=== PATIENT | female | born 1985 | race Caucasian/White ===

== ENCOUNTER 2016-07-21 02:31 | Emergency (ER) | payer MEDICAID, MEDICARE ==
[~2016-07-21] VITALS: Ht 167.6 cm; Wt 53.0 kg
[~2016-07-21 02:31] MED LIST: LORA10TA PO; POLY.9T TOP
[2016-07-21 02:34] VITALS: BP 119/69; PULSE 84; RESP 16; TEMP 97.5; O2SAT 100
[2016-07-21 03:04] LABS: MEAN CORPUSCULAR HGB CONC 36.5 % (32.0-36.0)
--- NOTE | 2016-07-21 03:14 | PD ---
HPI Chief Complaint: Respiratory Symptoms Time Seen by Provider: 02:49 Travel History International Travel<30 days: No Contact w/Intl Traveler<30days: No Traveled to known affect area: No History of Present Illness HPI 31-year-old female approximately 25 weeks here for evaluation of shortness of breath. The patient reports that she woke up in the middle of the night tonight feeling short of breath. This is the third or fourth time that this has happened during her . She reports that she feels as though she cannot catch her breath. No chest pain. No fevers, chills, cough, recent illness. No history of DVT or PE. Positive movements. No vaginal bleeding or discharge. No abdominal pain. No leg pain or swelling. PFSH Past Medical History Diminished Hearing: No Musculoskeletal: Yes (PINCHED NERVES IN BACK) Integumentary: Yes (hx hives) Immunizations Current: Yes ?: LMP: 716 : 4 Para: 1 Miscarriage: 2 Ectopic : No Ovarian Cysts: No Dilation and Curettage (D&C): Yes Tubal Ligation: No Past Surgical History Hysterectomy: No Other Surgery: Yes (LEFT EYE ) Social History Alcohol Use: No Tobacco Use: No Substance Use: No Allergies-Medications (Allergen,Severity, Reaction): Coded Allergies: Macrolides (Verified Allergy, Severe, 07/21/16) Hives Tetracycline (Verified Allergy, Severe, Rash, 07/21/16) POSSIBLE Reported Meds & Prescriptions Reported Meds & Active Scripts Active Loratadine 10 Mg Tab 10 Mg PO DAILY Review of Systems Except as stated in HPI: all other systems reviewed are Neg Physical Exam Narrative GENERAL: Well-developed, well-nourished, comfortable, no acute distress. SKIN: Warm and dry. No rash. No pallor. HEAD: Atraumatic. Normocephalic. EYES: Pupils equal and round. No scleral icterus. No injection or drainage. ENT: Mucous membranes pink and moist. NECK: Trachea midline. No JVD. CARDIOVASCULAR: Regular rate and rhythm. RESPIRATORY: No accessory muscle use. Clear to auscultation. Breath sounds equal bilaterally. GASTROINTESTINAL: Abdomen soft, nondistended. Gravid uterus palpable above the umbilicus. No abdominal tenderness. MUSCULOSKELETAL: No obvious deformities. No clubbing. No cyanosis. No edema. Bilateral calves are supple, nontender. NEUROLOGICAL: Awake and alert. No obvious cranial nerve deficits. Motor grossly within normal limits. Normal speech. PSYCHIATRIC: Appropriate mood and affect; insight and judgment normal. Data Data Last Documented VS Vital Signs Date Time Temp Pulse Resp B/P Pulse Ox O2 Delivery O2 Flow Rate FiO2 07/21/16 03:42 16 97 Room Air 07/21/16 02:34 97.5 84 119/69 Orders Complete Blood Count With Diff (07/21/16 03:03) Comprehensive Metabolic Panel (07/21/16 03:03) Iv Access Insert/Monitor (07/21/16 03:03) Ecg Monitoring (07/21/16 03:03) Oximetry (07/21/16 03:03) Sodium Chloride 0.9% Flush (Ns Flush) (07/21/16 03:15) Electrocardiogram (07/21/16 ) Influenzae A/B Antigen (07/21/16 03:03) Us Leg Venous Doppler Bilat (07/21/16 ) Chest, Single Ap (07/21/16 ) Labs Laboratory Tests Test 07/21/16 03:30 White Blood Count 7.7 TH/MM3 Red Blood Count 3.90 MIL/MM3 Hemoglobin 12.8 GM/DL Hematocrit 35.2 % Mean Corpuscular Volume 90.2 FL Mean Corpuscular Hemoglobin 32.9 PG Mean Corpuscular Hemoglobin 36.5 % Concent Red Cell Distribution Width 12.6 % Platelet Count 272 TH/MM3 Mean Platelet Volume 7.8 FL Neutrophils (%) (Auto) 66.7 % Lymphocytes (%) (Auto) 22.0 % Monocytes (%) (Auto) 8.6 % Eosinophils (%) (Auto) 2.2 % Basophils (%) (Auto) 0.5 % Neutrophils # (Auto) 5.1 TH/MM3 Lymphocytes # (Auto) 1.7 TH/MM3 Monocytes # (Auto) 0.7 TH/MM3 Eosinophils # (Auto) 0.2 TH/MM3 Basophils # (Auto) 0.0 TH/MM3 CBC Comment AUTO DIFF Differential Comment AUTO DIFF CONFIRMED Platelet Estimate NORMAL Platelet Morphology Comment NORMAL Red Cell Morphology Comment NORMAL Sodium Level 139 MEQ/L Potassium Level 3.7 MEQ/L Chloride Level 107 MEQ/L Carbon Dioxide Level 23.9 MEQ/L Anion Gap 8 MEQ/L Blood Urea Nitrogen 4 MG/DL Creatinine 0.36 MG/DL Estimat Glomerular Filtration 213 ML/MIN Rate Random Glucose 80 MG/DL Calcium Level 8.8 MG/DL Total Bilirubin 0.3 MG/DL Aspartate Amino Transf 12 U/L (AST/SGOT) Alanine Aminotransferase 19 U/L (ALT/SGPT) Alkaline Phosphatase 67 U/L Total Protein 6.5 GM/DL Albumin 3.0 GM/DL MDM Medical Decision Making Medical Screen Exam Complete: Yes Emergency Medical Condition: Yes Medical Record Reviewed: Yes Differential Diagnosis PE, pneumonia, pneumothorax, influenza, ACS unlikely, anxiety, anemia Narrative Course Initial vital signs show heart rate 84, blood pressure 119/69, pulse ox 100% on room air, oral temp of 97.5F. CBC is unremarkable. CMP is unremarkable. Influenza is negative. The patient's lung sounds are clear. She has no cough. She is afebrile. I doubt she has pneumonia. She is still having some intermittent shortness of breath. Her EKG does have an RSR prime pattern in V1 and V2 with no interventricular conduction delay. I had a long discussion with the patient and the patient's mom regarding the possibility of a PE causing her symptoms. At this time I will further investigate for this by starting with a bilateral lower extremity ultrasound. If this is negative for DVT, then the patient is aware that she may need a VQ scan for further evaluation to rule out PE. Bilateral lower extremity duplex is negative for DVT. The patient was made aware of this finding. The next step elected to do is to perform a chest x-ray to see if there is another reason for her shortness of breath. If this is negative, then the next step will be VQ scan to help rule out PE. At approximately 7:00 AM at the end of my shift the patient was signed out to Dr. Peter who will follow up with chest x-ray, discuss results with the patient, and discuss performing a VQ scan. Procedures Procedure Narrative Bedside transabdominal ultrasound: Using the curvilinear probe, a large intrauterine is seen with a heart rate of 150 bpm. Axel Mora MD Jul 21, 2016 03:14
[2016-07-21] MEDS ORDERED: SODIUM CHLORIDE 0.9% FLUSH 5 ML FLUSH IVF PRN (03:15)
[2016-07-21 03:43] LABS: AUTOMATED NEUTROPHIL # 5.1 TH/MM3 (1.8-7.7); BASOPHIL % 0.5 % (0.0-2.0); EOSINOPHIL # 0.2 TH/MM3 (0-0.4); EOSINOPHIL % 2.2 % (0.0-4.0); HEMATOCRIT 35.2 % (35.0-46.0); LYMPHOCYTE # 1.7 TH/MM3 (1.0-4.8); MEAN CELL VOLUME 90.2 FL (80.0-100.0); MEAN CORPUSCULAR HEMOGLOBIN 32.9 PG (27.0-34.0); MONO % 8.6 % (0.0-8.0); NEUT % 66.7 % (16.0-70.0); PLATELET COUNT 272 TH/MM3 (150-450); RED CELL DISTRIBUTION WIDTH 12.6 % (11.6-17.2); WHITE BLOOD COUNT 7.7 TH/MM3 (4.0-11.0)
[2016-07-21 03:46] LABS: HEMO FLAGS AUTO DIFF
[2016-07-21 04:08] LABS: ANION GAP 8 MEQ/L (5-15); AST (GOT) 12 U/L (15-37); BICARBONATE 23.9 MEQ/L (21.0-32.0); BLOOD UREA NITROGEN 4 MG/DL (7-18); CHLORIDE 107 MEQ/L (98-107); GLOMERULAR FILTRATION RATE 213 ML/MIN (>89); POTASSIUM 3.7 MEQ/L (3.5-5.1); SODIUM (NA) 139 MEQ/L (136-145)
[2016-07-21 04:16] LABS: ALKALINE PHOSPHATASE 67 U/L (45-117); ALT (GPT) 19 U/L (10-53); TOTAL BILIRUBIN ADULT 0.3 MG/DL (0.2-1.0)
[2016-07-21 04:28] LABS: PLATELET ESTIMATE SMEAR NORMAL (NORMAL); PLATELET MORPHOLOGY NORMAL (NORMAL); SCAN/DIFF AUTO DIFF CONFIRMED
--- NOTE | 2016-07-21 06:39 | RADRPT ---
EXAM DATE/TIME: 07/21/2016 06:03 [facility] COMPARISON: No previous studies available for comparison. INDICATIONS : Shortness of breath. MEDICAL HISTORY : . Back pain. SURGICAL HISTORY : Dilation and curettage. Left eye surgery. ENCOUNTER: Initial ACUITY: 1 day PAIN SCORE: 0/10 LOCATION: Bilateral legs. TECHNIQUE: Venous ultrasound of the left and right leg was performed from the inguinal ligament to the proximal calf. Real-time, color Doppler and spectral tracing, compression and augmentation techniques were us ed. FINDINGS: RIGHT LEG: There is normal compressibility of the deep venous system from the inguinal region to the proximal ca lf. No echogenic clot is seen in the lumen of the common femoral, femoral, popliteal, and posterior tibial veins. There is a normal response of the venous system to proximal and distal augmentation an d respiration. LEFT LEG: There is normal compressibility of the deep venous system from the inguinal region to the proximal ca lf. No echogenic clot is seen in the lumen of the common femoral, femoral, popliteal, and posterior tibial veins. There is a normal response of the venous system to proximal and distal augmentation an d respiration. CONCLUSION: The study is negative for deep venous thrombosis bilateral lower extremity. Darnell Villela MD on July 21, 2016 at 6:37 Board Certified Radiologist. This report was verified electronically.
--- NOTE | 2016-07-21 07:02 | RADRPT ---
EXAM DATE/TIME: 07/21/2016 06:56 [facility] COMPARISON: CHEST SINGLE AP, July 24, 2013, 18:21. INDICATIONS : Pt having shortness of breath and dizziness since being . Today having hard time catching checo ath. MEDICAL HISTORY : . SURGICAL HISTORY : None. ENCOUNTER: Initial ACUITY: 1 day PAIN SCORE: 7/10 LOCATION: Bilateral chest FINDINGS: A single view of the chest demonstrates the lungs to be symmetrically aerated without evidence of mas s, infiltrate or effusion. No evidence of pneumothorax. The cardiomediastinal contours are unremark able. Osseous structures are intact. CONCLUSION: The lungs are clear. Darnell Villela MD on July 21, 2016 at 7:01 Board Certified Radiologist. This report was verified electronically.
[2016-07-21 07:31] VITALS: BP 104/67; PULSE 82; RESP 12; O2SAT 99
[2016-07-21 10:26] VITALS: BP 101/66; PULSE 73; RESP 16; O2SAT 98
--- NOTE | 2016-07-21 10:29 | RADRPT ---
EXAM DATE/TIME: 07/21/2016 09:47 [facility] COMPARISON: CHEST SINGLE AP, July 21, 2016, 6:56. INDICATIONS : Shortness of breath. Embolus. DOSE: 1.1 mCi Tc99m Labeled MAA IV MEDICAL HISTORY : . SURGICAL HISTORY : Left eye surgery. ENCOUNTER: Initial ACUITY: 2 days PAIN SCALE: 0/10 LOCATION: upper chest TECHNIQUE: The patient was injected with MAA, and eight-view perfusion scan was performed. FINDINGS: PERFUSION: There is a homogenous pattern of radiotracer uptake throughout both lungs. Chest x-ray demonstrates clear lungs. CONCLUSION: Normal perfusion lung scan. Low probability for PE. Esvin Bobo MD on July 21, 2016 at 10:26 Board Certified Radiologist. This report was verified electronically.
--- NOTE | 2016-07-21 10:52 | PD ---
Physical Exam Narrative GENERAL: Well-nourished, well-developed patient. SKIN: Warm and dry. HEAD: Normocephalic and atraumatic. EYES: No injection or drainage. ENT: No nasal drainage noted. NECK: Supple, trachea midline. CARDIOVASCULAR: Regular rate and rhythm RESPIRATORY: no increased effort. No accessory muscle use. NEUROLOGICAL: Awake and alert. Motor and sensory grossly within normal limits. Normal speech. Data Data Last Documented VS Vital Signs Date Time Temp Pulse Resp B/P Pulse Ox O2 Delivery O2 Flow Rate FiO2 07/21/16 10:26 73 16 101/66 98 Room Air 07/21/16 02:34 97.5 Orders Complete Blood Count With Diff (07/21/16 03:03) Comprehensive Metabolic Panel (07/21/16 03:03) Iv Access Insert/Monitor (07/21/16 03:03) Ecg Monitoring (07/21/16 03:03) Oximetry (07/21/16 03:03) Sodium Chloride 0.9% Flush (Ns Flush) (07/21/16 03:15) Electrocardiogram (07/21/16 ) Influenzae A/B Antigen (07/21/16 03:03) Us Leg Venous Doppler Bilat (07/21/16 ) Chest, Single Ap (07/21/16 ) Lung Scan - Perfusion (07/21/16 ) Labs Laboratory Tests Test 07/21/16 03:30 White Blood Count 7.7 TH/MM3 Red Blood Count 3.90 MIL/MM3 Hemoglobin 12.8 GM/DL Hematocrit 35.2 % Mean Corpuscular Volume 90.2 FL Mean Corpuscular Hemoglobin 32.9 PG Mean Corpuscular Hemoglobin 36.5 % Concent Red Cell Distribution Width 12.6 % Platelet Count 272 TH/MM3 Mean Platelet Volume 7.8 FL Neutrophils (%) (Auto) 66.7 % Lymphocytes (%) (Auto) 22.0 % Monocytes (%) (Auto) 8.6 % Eosinophils (%) (Auto) 2.2 % Basophils (%) (Auto) 0.5 % Neutrophils # (Auto) 5.1 TH/MM3 Lymphocytes # (Auto) 1.7 TH/MM3 Monocytes # (Auto) 0.7 TH/MM3 Eosinophils # (Auto) 0.2 TH/MM3 Basophils # (Auto) 0.0 TH/MM3 CBC Comment AUTO DIFF Differential Comment AUTO DIFF CONFIRMED Platelet Estimate NORMAL Platelet Morphology Comment NORMAL Red Cell Morphology Comment NORMAL Sodium Level 139 MEQ/L Potassium Level 3.7 MEQ/L Chloride Level 107 MEQ/L Carbon Dioxide Level 23.9 MEQ/L Anion Gap 8 MEQ/L Blood Urea Nitrogen 4 MG/DL Creatinine 0.36 MG/DL Estimat Glomerular Filtration 213 ML/MIN Rate Random Glucose 80 MG/DL Calcium Level 8.8 MG/DL Total Bilirubin 0.3 MG/DL Aspartate Amino Transf 12 U/L (AST/SGOT) Alanine Aminotransferase 19 U/L (ALT/SGPT) Alkaline Phosphatase 67 U/L Total Protein 6.5 GM/DL Albumin 3.0 GM/DL MDM Supervised Visit with LUANNE: No Interpretation(s) CBC & BMP Diagram 07/21/16 03:30 Last 24 hours Impressions Lung Scan Nuclear Medicine 07/21/16 0000 Signed Impressions: Service Date/Time: Thursday, July 21, 2016 09:47 - CONCLUSION: Normal perfusion lung scan. Low probability for PE. Esvin Bobo MD Lower Extremity Ultrasound 07/21/16 0000 Signed Impressions: Service Date/Time: Thursday, July 21, 2016 06:03 - CONCLUSION: The study is negative for deep venous thrombosis bilateral lower extremity. Darnell Villela MD Chest X-Ray 07/21/16 0000 Signed Impressions: Service Date/Time: Thursday, July 21, 2016 06:56 - CONCLUSION: The lungs are clear. Darnell Villela MD Narrative Course dr worley gave sign out to follow cxr and if negative to order vq vq negative, Patient denies any new complaints, all questions answered. Patient knows that follow up is incumbent on them and to return to the emergency room immediately if new or worsening symptoms develop. Patient given strict return precautions, vitals reviewed and are normal, agrees to further workup as an outpatient. Physician Communication Physician Communication ob hospitalist states can go home after review of workup Diagnosis Primary Impression: Shortness of breath due to Patient Instructions: General Instructions Additional Instruction: return as needed, follow with your ob tommorrow Med/Other Pt SpecificInfo: No Change to Meds Scripts No Active Prescriptions or Reported Meds Disposition: 01 DISCHARGE HOME Condition: Stable Kate Peter MD Jul 21, 2016 10:52
[2016-07-21] MEDS ORDERED: BENA25TA3 PO (23:00)
--- NOTE | 2016-07-21 23:27 | EKG ---
Date Performed: 07/21/2016 Time Performed: 04:11:41 PTAGE: 31 years EKG: Sinus rhythm POSSIBLE RIGHT VENTRICULAR CONDUCTION DELAY NONSPECIFIC T-WAVE ABNORMALITY BORDERLINE ECG Compared t o the PREVIOUS TRACING from 07/24/13, no significant change DOCTOR: Emil French Interpretating Date/Time 07/21/2016 23:26:27
[2016-07-22] MEDS ORDERED: VENTAER INH (16:22)
[2016-07-22] MEDS ORDERED: ALBU.5I NEB (16:22)
[2016-07-22] MEDS ORDERED: NEBULIZER1 MI1 (16:22)
[2016-08-06] MEDS ORDERED: OSEL75 PO (16:54)
[2016-08-09] MEDS ORDERED: HYDR-3133 PO (12:08)
[2016-08-09] MEDS ORDERED: SERT-132 PO (12:08)
[2016-08-23] MEDS ORDERED: TETA1INJ6 IM (14:04)
[2016-08-23] MEDS ORDERED: INFL1INJ55 I-DERMAL (14:06)
[2016-09-18] MEDS ORDERED: ERYTOIN10 EACH EYE (15:35)
[2016-10-22] MEDS ORDERED: BACT800T5 PO (10:14)
[2016-10-29] MEDS ORDERED: ESTR42.5V (16:43)
[2016-11-21] MEDS ORDERED: ORTH0.25 PO (14:24)
[2016-11-21] MEDS ORDERED: TRI-TAB PO (14:48)
[2016-12-11] MEDS ORDERED: MEDR150I IM (13:28)
[2016-12-18] MEDS ORDERED: DEPO150I IM (15:43)
== END 2016-07-21 11:15 | disposition home or self-care (01) ==
LOC: NEPC 02:31
DX: O26.892 Other specified pregnancy related conditions, second trimester (principal); R06.02 Shortness of breath; Z3A.25 25 weeks gestation of pregnancy; O99.342 Other mental disorders complicating pregnancy, second trimester; F41.1 Generalized anxiety disorder
CPT/HCPCS: 71010; 78580; 80053; 85025; 87804; 93005; 93970; 99285; A9540; 99284

== ENCOUNTER 2016-07-21 22:28 | Emergency (ER) | payer MEDICARE ==
[~2016-07-21] VITALS: Ht 167.6 cm; Wt 53.0 kg
[2016-07-21 22:30] VITALS: BP 109/67; PULSE 92; RESP 16; TEMP 98.1; O2SAT 98
--- NOTE | 2016-07-21 22:59 | PD ---
HPI Chief Complaint: Dizziness Time Seen by Provider: 22:52 Travel History International Travel<30 days: No Contact w/Intl Traveler<30days: No Traveled to known affect area: No History of Present Illness HPI 31-year-old female who is 25 weeks and was recently discharged earlier this morning status post complete workup for complaints of episodic shortness of breath and dizziness. Patient had workup including bilateral lower extremity DVT studies, lab work, x-ray, and a CT scan. All these previous tests were within normal limits. Patient is back stating that she cannot lay down, she feels that she cannot breathe patient becomes short of breath, and has to get up and walk around to improve her symptoms. Patient denies chest pain, nausea, vomiting, or abdominal pain. Patient states that her father has congestive heart failure and she is concerned that she may have some sort of problem with her heart. EKG from last night is reviewed and shows a normal sinus rhythm without any significant ST findings. Patient was supposed to follow with her OB today did not. 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 She denies suicidal or homicidal ideation. She is here with her mother. She is allergic to macrolides and tetracycline. PFSH Past Medical History Diminished Hearing: No Musculoskeletal: Yes (PINCHED NERVES IN BACK) Integumentary: Yes (hx hives) Immunizations Current: Yes : 4 Para: 1 Miscarriage: 2 Ectopic : No Ovarian Cysts: No Dilation and Curettage (D&C): Yes Tubal Ligation: No Past Surgical History Hysterectomy: No Other Surgery: Yes (LEFT EYE ) Social History Alcohol Use: No Tobacco Use: No Substance Use: No Allergies-Medications (Allergen,Severity, Reaction): Coded Allergies: Macrolides (Verified Allergy, Severe, 07/21/16) Hives Tetracycline (Verified Allergy, Severe, Rash, 07/21/16) POSSIBLE Reported Meds & Prescriptions Reported Meds & Active Scripts Active Benadryl Allergy (Diphenhydramine HCl) 25 Mg Tab 25-50 Mg PO Q6H PRN Review of Systems Except as stated in HPI: all other systems reviewed are Neg General / Constitutional: No: Fever Eyes: No: Visual changes HENT: No: Headaches Cardiovascular: No: Chest Pain or Discomfort Respiratory: Positive: Shortness of Breath, No: Cough, Orthopnea, Hemoptysis, Pleuritic Pain Gastrointestinal: No: Abdominal Pain Genitourinary: No: Dysuria Musculoskeletal: No: Pain Skin: No Rash Neurologic: Positive: Dizziness (see history present illness.), No: Weakness Psychiatric: Positive: Anxiety, No: Depression Endocrine: No: Polydipsia Hematologic/Lymphatic: No: Easy Bruising Physical Exam Narrative GENERAL: Patient appears anxious but in no acute distress. SKIN: Warm and dry. Normal color. Normal turgor. HEAD: Atraumatic. Normocephalic. EYES: Pupils equal and round. No scleral icterus. No injection or drainage. ENT: No nasal bleeding or discharge. Mucous membranes pink and moist. Pharynx is clear. Airway is patent. NECK: Trachea midline. No JVD. Neck is supple. No palpable thyroid. CARDIOVASCULAR: Regular rate and rhythm. No murmurs gallops or rubs appreciated. RESPIRATORY: No accessory muscle use. Clear to auscultation. Breath sounds equal bilaterally. GASTROINTESTINAL: Abdomen soft, non-tender, nondistended. Hepatic and splenic margins not palpable. Gravid uterus is noted. MUSCULOSKELETAL: Extremities without clubbing, cyanosis, or edema. No obvious deformities. NEUROLOGICAL: Awake and alert. No obvious cranial nerve deficits. Motor grossly within normal limits. Five out of 5 muscle strength in the arms and legs. Normal speech. PSYCHIATRIC: Appropriate mood but appears anxious; insight and judgment normal. Data Data Last Documented VS Vital Signs Date Time Temp Pulse Resp B/P Pulse Ox O2 Delivery O2 Flow Rate FiO2 07/21/16 22:52 92 16 98 Room Air 07/21/16 22:30 98.1 109/67 [facility] Medical Decision Making Medical Screen Exam Complete: Yes Emergency Medical Condition: Yes Differential Diagnosis Shortness of breath. 25 weeks . Anxiety. Possible panic attacks. Narrative Course Patient is medically stable at time of exam. Based on the patient's history and physical for the patient is suffering from anxiety with panic attacks. Considering the patient had a complete and full workup less than 12 hours ago further medical evaluation is not felt necessary at this time based on the patient's history and physical. Patient is discussed with Dr. Preciado who agrees with the above. Dr. Preciado sees the patient as well. Patient is felt to be stable for discharge. Patient take Benadryl 25 mg 1-2 tabs every 6 hours when necessary for her anxiety. Patient will be set up for an outpatient 2-D echo. Strongly recommend the patient follow with her OB tomorrow. Patient may return to emergency Department with worsening symptoms if necessary. Diagnosis Primary Impression: Shortness of breath due to Additional Impression: Anxiety attack Patient Instructions: Anxiety (ED), General Instructions, Panic Attack (ED) Additional Instructions: Patient is felt to be stable for discharge. Patient take Benadryl 25 mg 1-2 tabs every 6 hours when necessary for her anxiety. Strongly recommend the patient follow with her OB tomorrow. Patient will be set up for an outpatient 2-D echo. Patient may return to emergency Department with worsening symptoms if necessary. Med/Other Pt SpecificInfo: Prescription(s) given Scripts Diphenhydramine (Benadryl Allergy)25 Mg [id number] Mg PO Q6H PRN (ANXIETY AND/OR AGITATION) #30 TAB Ref 0 Prov:Louise Preciado MD 07/21/16 Disposition: 01 DISCHARGE HOME Condition: Stable Eugene Collado Jul 21, 2016 22:59
[2016-07-21] MEDS ORDERED: BENA25TA3 PO (23:00)
--- NOTE | 2016-07-21 23:13 | PD ---
Physical Exam Narrative General: The patient is a well-developed well-nourished female in no acute distress. Head and Neck exam: Head is normocephalic atraumatic. Eyes: Pupils are equal round and reactive to light. Nose: Midline septum with pink mucous membranes Mouth: Dentition unremarkable. Moist mucus membranes. Posterior oropharynx is not erythematous. No tonsillar hypertrophy. Uvula midline. Airway patent. Neck: No palpable lymphadenopathy. No nuchal rigidity. No thyromegaly. Cardiovascular: Regular rate and rhythm without murmurs, gallops, or rubs. No pulse deficit to the extremities. Lungs: Clear to auscultation bilaterally. No wheezes, rhonchi, or rales. Abdomen: Soft, without tenderness to palpation in all 4 quadrants of the abdomen. No guarding, rebound, or rigidity. Normal bowel sounds are audible. The patient has abdominal distention with a fundus above the umbilicus consistent with her . Extremities: No clubbing, cyanosis, or edema. 2+ pulses in all 4 extremities. No calf tenderness on palpation. Back: No spinous process tenderness to palpation. No costovertebral angle tenderness to palpation. Neurologic Exam: Grossly nonfocal. Skin Exam: No rash noted. Intact skin that is warm and dry. Data Data Last Documented VS Vital Signs Date Time Temp Pulse Resp B/P Pulse Ox O2 Delivery O2 Flow Rate FiO2 07/21/16 23:39 88 16 112/70 99 07/21/16 22:52 Room Air 07/21/16 22:30 98.1 MDM Medical Record Reviewed: Yes Supervised Visit with LUANNE: Yes Narrative Course I, Dr. Preciado, have reviewed the advance practice practitioner's documentation and am in agreement, met with the patient face to face, made the diagnosis, and the medical decision making was done by me. The patient was initially seen by Eugene, the physician cancer genetics assistant. Please see his complete history and physical. *My assessment and Findings: The patient is a 31-year-old female who presents to [facility] emergency department as a with 2 prior miscarriages currently at 25 weeks gestation with reports of intermittent chest pain and shortness of breath. The patient was recently seen in the emergency department early on July 21 related to these complaints. A thorough workup ensued including a chest x-ray, ECG, and laboratory studies. The patient additionally had a VQ scan to rule out PE. The patient scan was negative. Chest x-ray was unremarkable. The patient's blood work was unremarkable. The patient reports that she discuss this further with her family and was concerned that she had a family history of congestive heart failure in her dad and when the symptoms recurred again this evening she decided to come in for evaluation. On arrival, the patient's vital signs are within normal limits. The patient has a normal examination without any cardiac arrhythmia or murmur noted. Lungs are clear to auscultation bilaterally. The patient is interested in a 2-D echo to further evaluate her symptoms. Eugene and Kyrie both explained that this is not done emergently, however we can certainly order this testing to be done as an outpatient. I explained that the patient has no signs of congestive heart failure on her chest x-ray or based on her examination, therefore she is reassured that this is unlikely. The patient reports that with her last carried to term she did have hives. She reports that she has not had hives with this , however she's had these intermittent episodes of shortness of breath that come on suddenly associated with chest tightness. We did discuss a trial of Benadryl to see if that would help with her symptoms. The patient will try this when she gets home. The patient will follow up with her [facility] ATTENDANT as previously scheduled. The patient was given an outpatient lab slip for 2-D echo. The patient will be discharged home. The patient is resting comfortably and feels better, is alert and in no distress. The patients prior results and examination findings were discussed with her. The repeat examination is unremarkable and benign. The history, exam , diagnostic testing, and current condition do not suggest any significant pathology to warrant further testing, continued ED treatment, admission, or surgical evaluation at this point. The vital signs have been stable. The patient does not have uncontrollable pain, intractable vomiting, or other significant symptoms. The patient's condition is stable and appropriate for discharge. The patient will pursue further outpatient evaluation with a primary care physician or other designated or consulting physician as indicated in the discharge instructions. The patient expressed understanding and was agreeable with this plan. Diagnosis Primary Impression: Shortness of breath due to Additional Impression: Anxiety attack Patient Instructions: General Instructions, Anxiety (ED), Panic Attack (ED) Additional Instruction: Patient is felt to be stable for discharge. Patient take Benadryl 25 mg 1-2 tabs every 6 hours when necessary for her anxiety. Strongly recommend the patient follow with her OB tomorrow. Patient may return to emergency Department with worsening symptoms if necessary. Scripts Diphenhydramine (Benadryl Allergy)25 Mg Izf03-30 Mg PO Q6H PRN (ANXIETY AND/OR AGITATION) #30 TAB Ref 0 Prov:Louise Preciado MD 07/21/16 Disposition: 01 DISCHARGE HOME Condition: Stable Louise Preciado MD Jul 21, 2016 23:13
[2016-07-21 23:39] VITALS: BP 112/70
[2016-07-22] MEDS ORDERED: ALBU.5I NEB (16:22)
[2016-07-22] MEDS ORDERED: NEBULIZER1 MI1 (16:22)
[2016-07-22] MEDS ORDERED: VENTAER INH (16:22)
[2016-08-06] MEDS ORDERED: OSEL75 PO (16:54)
[2016-08-09] MEDS ORDERED: SERT-132 PO (12:08)
[2016-08-09] MEDS ORDERED: HYDR-3133 PO (12:08)
[2016-08-23] MEDS ORDERED: TETA1INJ6 IM (14:04)
[2016-08-23] MEDS ORDERED: INFL1INJ55 I-DERMAL (14:06)
[2016-09-18] MEDS ORDERED: ERYTOIN10 EACH EYE (15:35)
[2016-10-22] MEDS ORDERED: BACT800T5 PO (10:14)
[2016-10-29] MEDS ORDERED: ESTR42.5V (16:43)
[2016-11-21] MEDS ORDERED: ORTH0.25 PO (14:24)
[2016-11-21] MEDS ORDERED: TRI-TAB PO (14:48)
[2016-12-11] MEDS ORDERED: MEDR150I IM (13:28)
[2016-12-18] MEDS ORDERED: DEPO150I IM (15:43)
== END 2016-07-21 23:49 | disposition home or self-care (01) ==
LOC: NEPE 22:28
DX: O99.342 Other mental disorders complicating pregnancy, second trimester (principal); F41.1 Generalized anxiety disorder; Z3A.25 25 weeks gestation of pregnancy
CPT/HCPCS: 99284

== ENCOUNTER → 2016-07-25 | Outpatient (CLI) | payer MEDICAID ==
[~2016-07-25] MED LIST changes: +ALBU.5I NEB; +BACT800T5 PO; +BENA25TA3 PO; +DEPO150I IM; +ERYTOIN10 EACH EYE; +ESTR42.5V; +FERR325T PO; +HYDR-3133 PO; +IBUP-232 PO; +INFL1INJ55 I-DERMAL; -LORA10TA PO; +MEDR150I IM; +NEBULIZER1 MI1; +ORTH0.25 PO; +OSEL75 PO; +OXYC1TAB63 PO; +SERT-132 PO; +TETA1INJ6 IM; +TRI-TAB PO; +VENTAER INH
--- NOTE | 2016-07-25 12:13 | EC ---
Study Study Date:07/25/2016 STUDY CONCLUSIONS SUMMARY - Left ventricle: The cavity size was normal. Wall thickness was normal. Systolic function was vigorous. The estimated ejection fraction was in the range of 65% to 65%. Wall motion was normal; there were no regional wall motion abnormalities. - Aortic valve: Valve area: 2.26cm^2 (Vmax). If LV function is below 40, please consider prescribing an ACEI or ARB or document rationale for non-use. PROCEDURE DATA STUDY STATUS: Elective. Procedure: Transthoracic echocardiography. Image quality was good. Scanning was performed from the parasternal, apical, and subcostal acoustic windows. Study completion: The patient tolerated the procedure well. Transthoracic echocardiography. M-mode, complete 2D, complete spectral Doppler, and color Doppler. Patient status: Inpatient. CARDIAC ANATOMY LEFT VENTRICLE: The cavity size was normal. Wall thickness was normal. Systolic function was vigorous. The estimated ejection fraction was in the range of 65% to 65%. Wall motion was normal; there were no regional wall motion abnormalities. AORTIC VALVE: Trileaflet; normal thickness leaflets. Doppler: Transvalvular velocity was within the normal range. There was no stenosis. No regurgitation. Valve area: 2.26cm^2 (Vmax). AORTA: Aortic root: The aortic root was normal in size. MITRAL VALVE: Structurally normal valve. Doppler: Transvalvular velocity was within the normal range. There was no evidence for stenosis. No regurgitation. LEFT ATRIUM: The atrium was normal in size. RIGHT VENTRICLE: The cavity size was normal. Wall thickness was normal. PULMONIC VALVE: Doppler: Transvalvular velocity was within the normal range. There was no evidence for stenosis. No regurgitation. TRICUSPID VALVE: Structurally normal valve. Doppler: Transvalvular velocity was within the normal range. Trace regurgitation. PULMONARY ARTERY: The main pulmonary artery was normal-sized. Systolic pressure was within the normal range. RIGHT ATRIUM: The atrium was normal in size. PERICARDIUM: There was no pericardial effusion. SYSTEMIC VEINS: Inferior vena cava: The vessel was normal in size. BASIC MEASUREMENTS ADULT NORMAL Left ventricle LV internal dimension, ED, chordal level, *39.4 mm 43-52 PLAX LV internal dimension, ES, chordal level, 30.9 mm 23-38 PLAX Fractional shortening, chordal level, PLAX *22 % >29 LV posterior wall thickness, ED 6.12 mm IVS/LVPW ratio, ED 1.04 <1.3 Ventricular septum Septal thickness, ED 6.34 mm Aortic valve Leaflet separation 20 mm 15-26 Right ventricle RV internal dimension, ED, PLAX *18.2 mm 19-38 BASIC MEASUREMENTS ADULT NORMAL Aortic valve Leaflet separation 20 mm 15-26 Aorta Root diameter, ED 24 mm 20-37 Left atrium Anterior-posterior dimension, ES 29 mm 19-40 LA/aortic root ratio 1.21 DOPPLER MEASUREMENTS ADULT NORMAL Main pulmonary artery Pressure, S 23 mm Hg =30 Pressure, ED 14 mm Hg Aortic valve Peak velocity, S 153 cm/s Valve area, Vmax 2.26 cm^2 Mitral valve Peak E-wave velocity 62.2 cm/s Peak A-wave velocity 60.7 cm/s Deceleration time 222 ms 150-230 Peak E/A ratio 1 Tricuspid valve Regurgitant peak velocity 175 cm/s Peak RV-RA gradient, S 12 mm Hg Maximal regurgitant velocity 175 cm/s Systemic veins Estimated CVP 10 mm Hg Right ventricle RV pressure, S 29 mm Hg <30 Pulmonic valve Peak velocity, S 127 cm/s Regurgitant velocity, ED 94.3 cm/s LEGEND: Mean values are shown as u=mean value. Asterisk (*) camarena values outside specified normal range. Prepared and signed by Gustabo Powell [id number]
--- NOTE | 2016-08-12 12:40 | RSPPFT ---
DATE OF PROCEDURE: 07/25/16 COMMENTS: Spirometry demonstrates an FEV1 of 2.9 at 94% of predicted, FVC of 3.6 at 101%, FEF 25-75 is 76% of predicted. Post-bronchodilator study demonstrated no significant change. Flow volume loops are unremarkable. IMPRESSION: 1. Essentially normal pulmonary function study. 2. No significant change after use of bronchodilator.
== END ==
LOC: HECH 08:06
PROVIDERS: ATTEND Family Medicine
DX: O26.899 Other specified pregnancy related conditions, unspecified trimester (principal); R06.02 Shortness of breath
CPT/HCPCS: 93306; 94060

== ENCOUNTER 2016-08-05 14:03 | Emergency (ER) | payer MEDICAID ==
[~2016-08-05] VITALS: Ht 165.1 cm; Wt 54.0 kg
[~2016-08-05 14:03] MED LIST changes: -BACT800T5 PO; -DEPO150I IM; -ERYTOIN10 EACH EYE; -ESTR42.5V; -FERR325T PO; -HYDR-3133 PO; -IBUP-232 PO; -INFL1INJ55 I-DERMAL; -MEDR150I IM; -ORTH0.25 PO; -OSEL75 PO; -OXYC1TAB63 PO; -SERT-132 PO; -TETA1INJ6 IM; -TRI-TAB PO
[2016-08-05 14:16] VITALS: BP 89/67; PULSE 111; RESP 18; TEMP 98.3; O2SAT 100
[2016-08-05 18:03] VITALS: BP 86/59; PULSE 111; RESP 20; O2SAT 95
[2016-08-05 18:49] VITALS: BP 90/62; PULSE 110; RESP 20; O2SAT 95
--- NOTE | 2016-08-05 18:55 | PD ---
HPI Chief Complaint: Related Problem Time Seen by Provider: 18:36 Travel History International Travel<30 days: No Contact w/Intl Traveler<30days: No Traveled to known affect area: No History of Present Illness HPI 31-year-old female with 27 weeks , complaining of difficult breathing and shortness of breath especially at night and poor appetite and constipation. Patient has been to the emergency room several times in the past for shortness of breath. Patient had VQ scan done, blood tests done an echocardiogram done which were normal. Patient states that she had persistent shortness of breath. Patient also complained of cramping pain on the right upper quadrant of the abdomen. Patient denies any pain radiation. Patient states the fetus directed. Patient denies any vaginal discharge or bleeding. Patient denies any dysuria or frequency. Patient denies any fever chills. PFSH Past Medical History Diminished Hearing: No Musculoskeletal: Yes (PINCHED NERVES IN BACK) Integumentary: Yes (hx hives) Immunizations Current: Yes ?: LMP: 27 weeks : 4 Para: 1 Miscarriage: 2 Ectopic : No Ovarian Cysts: No Dilation and Curettage (D&C): Yes Tubal Ligation: No Past Surgical History Hysterectomy: No Other Surgery: Yes (LEFT EYE ) Social History Alcohol Use: No Tobacco Use: No Substance Use: No Allergies-Medications (Allergen,Severity, Reaction): Coded Allergies: Macrolides (Verified Allergy, Severe, 08/05/16) Hives Tetracycline (Verified Allergy, Severe, Rash, 08/05/16) POSSIBLE Reported Meds & Prescriptions Reported Meds & Active Scripts Active Nebulizer 1 Mis Mis 1 Ea .ROUTE DIRECTED Ventolin Hfa 18 GM Inh (Albuterol Sulfate) 90 Mcg/Act Aer 1 Puff INH Q4H PRN Albuterol Neb (Albuterol Sulfate) 2.5 Mg/0.5 Ml Neb 2.5 Mg NEB TID NEB PRN Note: The Albuterol Sulfate Inhalation Solution is concentrated and must be diluted. Read complete instructions carefully before using. Benadryl Allergy (Diphenhydramine HCl) 25 Mg Tab 25-50 Mg PO Q6H PRN Review of Systems General / Constitutional: No: Fever Eyes: No: Visual changes HENT: No: Headaches Cardiovascular: No: Chest Pain or Discomfort Respiratory: Positive: Shortness of Breath Gastrointestinal: Positive: Abdominal Pain Genitourinary: No: Dysuria Musculoskeletal: No: Pain Skin: No Rash Neurologic: No: Weakness Psychiatric: No: Depression Endocrine: No: Polydipsia Hematologic/Lymphatic: No: Easy Bruising Physical Exam Narrative GENERAL: Well-nourished, well-developed patient. SKIN: Warm and dry. HEAD: Normocephalic. EYES: No scleral icterus. No injection or drainage. NECK: Supple, trachea midline. No JVD or lymphadenopathy. CARDIOVASCULAR: Regular rate and rhythm without murmurs, gallops, or rubs. RESPIRATORY: Breath sounds equal bilaterally. No accessory muscle use. GASTROINTESTINAL: Abdomen soft, nondistended. Patient has mild tenderness on palpation right upper quadrant of the abdomen on the upper part of the uterus. Bedside ultrasound shows active movement with heart tone 146. MUSCULOSKELETAL: No cyanosis, or edema. BACK: Nontender without obvious deformity. No CVA tenderness. Data Data Last Documented VS Vital Signs Date Time Temp Pulse Resp B/P Pulse Ox O2 Delivery O2 Flow Rate FiO2 08/05/16 18:49 110 20 90/62 95 08/05/16 14:16 98.3 [facility] Medical Decision Making Medical Screen Exam Complete: Yes Emergency Medical Condition: Yes Differential Diagnosis Differential diagnosis including musculoskeletal, abdominal colic, uterine irritation. Narrative Course 31-year-old female, 27 weeks , with shortness of breath, abdominal cramping. I spoke with the ED OB. Advised patient to be evaluated at OB department at the [facility]. Diagnosis Primary Impression: Abdominal pain during intrauterine Patient Instructions: General Instructions Additional Instructions: Patient will be sent to OB Department the [facility] by private vehicle for evaluation. Disposition: 70 TRANSFER TO OTHER FACILITY Condition: Toño Patel MD Aug 05, 2016 18:55
[2016-08-06] MEDS ORDERED: OSEL75 PO (16:54)
[2016-08-09] MEDS ORDERED: HYDR-3133 PO (12:08)
[2016-08-09] MEDS ORDERED: SERT-132 PO (12:08)
[2016-08-23] MEDS ORDERED: TETA1INJ6 IM (14:04)
[2016-08-23] MEDS ORDERED: INFL1INJ55 I-DERMAL (14:06)
[2016-09-18] MEDS ORDERED: ERYTOIN10 EACH EYE (15:35)
[2016-10-22] MEDS ORDERED: BACT800T5 PO (10:14)
[2016-10-29] MEDS ORDERED: ESTR42.5V (16:43)
[2016-11-21] MEDS ORDERED: ORTH0.25 PO (14:24)
[2016-11-21] MEDS ORDERED: TRI-TAB PO (14:48)
[2016-12-11] MEDS ORDERED: MEDR150I IM (13:28)
[2016-12-18] MEDS ORDERED: DEPO150I IM (15:43)
== END 2016-08-05 19:25 | disposition short-term general hospital (02) ==
LOC: PHED 14:03
DX: O26.892 Other specified pregnancy related conditions, second trimester (principal); R10.11 Right upper quadrant pain; Z3A.27 27 weeks gestation of pregnancy
CPT/HCPCS: 99284

== ENCOUNTER 2016-08-05 20:02 | Emergency (ER) | payer MEDICAID ==
--- NOTE | 2016-08-05 21:04 | PD ---
HPI Chief Complaint insomnia Date Seen: Aug 05, 2016 Time Seen: 20:20 Travel History International Travel<30 Days: No Contact w/Intl Traveler<30Days: No Known Affected Area: No History of Present Illness HPI 31yo [id number] at [id number] with many complaints. c/o feeling short of breath in the middle of night, wakes up and has insomnia the rest of the night. As she is unable to sleep she paces around the house. Difficulty in eating well. Also feels very unsatisfied with her office visits as her complaints, particularly regarding her severe insomnia goes untreated. Has had complete workup for pulm/ cardiac concerns with EKG, Holter, V/Q scans, labs. Just recently had thyroid labs drawn. labs normal. No previous history of anxiety or depression although she has significant paternal h/o anxiety disorder. Para: 1 : 4 History Past Medical History Medical History: Denies Significant Hx Obstetric History Obstetric History SAB x 2 Past Surgical History Narrative Surgical D&C Family History Family History: Negative Social History Alcohol Use: No Tobacco Use: No Substance Abuse: No Allergies-Medications (Allergen,Severity, Reaction): Coded Allergies: Macrolides (Verified Allergy, Severe, 08/05/16) Hives Tetracycline (Verified Allergy, Severe, Rash, 08/05/16) POSSIBLE Home Meds Active Scripts Nebulizer 1 Mis Mis #1 EA .ROUTE DIRECTED Ref 0 Prov:Jarred Deleon MD R2 07/22/16 Albuterol 18 GM Inh (Ventolin Hfa 18 GM Inh)90 Mcg/Act Aer1 Puff INH Q4H PRN ( SHORTNESS OF BREATH) #1 INHALER Ref 0 Prov:Jarred Deleon MD R2 07/22/16 Albuterol Neb 2.5 Mg/0.5 Ml Neb2.5 Mg NEB TID NEB PRN (SHORTNESS OF BREATH) #90 NEBULE Ref 0 Note: The Albuterol Sulfate Inhalation Solution is concentrated and must be diluted. Read complete instructions carefully before using. Prov:Jarred Deleon MD R2 07/22/16 Diphenhydramine (Benadryl Allergy)25 Mg [id number] Mg PO Q6H PRN (ANXIETY AND/OR AGITATION) #30 TAB Ref 0 Prov:Louise Preciado MD 07/21/16 Review of Systems Except as stated in HPI: all other systems reviewed are Neg Physical Exam Narrative GENERAL: Well-nourished, well-developed patient. SKIN: Warm and dry. HEAD: Normocephalic and atraumatic. EYES: No scleral icterus. No injection or drainage. ENT: No nasal drainage noted. Mucous membranes pink. Airway patent. NECK: Supple, trachea midline. No JVD. CARDIOVASCULAR: Regular rate and rhythm without murmurs, gallops, or rubs. RESPIRATORY: Breath sounds equal bilaterally. No accessory muscle use. BREASTS: Bilateral exam showed no masses , no retractions, no nipple discharge. ABDOMEN/GI: Abdomen soft, non-tender, bowel sounds present, no rebound, no guarding Gravid to [-] weeks size Fundal Height: [-]26 GENITOURINARY: deferred External Genitalia: intact and normal in appearance BUS glands: [-] Cervix: [-] Dilatation: [-] Effacement: [-] Station: [-] Presentation: [-] Membranes: [intact or ruptured] Uterine Contractions: [-] Occasional external contraction on toco, not noticed by patient FHT's: Category: [-] 1 Baseline: [-] 145 Reactive: [-] mod Variability: [-] mod Decels: [-] absent EXTREMITIES: No cyanosis or edema. BACK: Nontender without obvious deformity. No CVA tenderness. NEUROLOGICAL: Awake and alert. Motor and sensory grossly within normal limits. Five out of 5 muscle strength in all muscle groups. Normal speech. Data Data Vital Signs Reviewed: Yes MDM Narrative Course / MDM I am concerned about anxiety and depression during given the somatic complaints and lack of physical abnormalities. Complete cardiac and pulm workup has been negative. Discussed in depth with patient the need to have a leatha assessment with provider and consider medical treatment with anti-depressants that also cross over to anxiety Suspect insomnia and panic attacks at night will improve with adequate treatment Diagnosis Diagnosis: Primary Impression: Insomnia Additional Impressions: Anxiety disorder affecting , antepartum Gestational dyspnea 27 weeks gestation of Disposition: 01 DISCHARGE HOME Claritza Gage MD Aug 05, 2016 21:04
[2016-08-06] MEDS ORDERED: OSEL75 PO (16:54)
[2016-08-09] MEDS ORDERED: HYDR-3133 PO (12:08)
[2016-08-09] MEDS ORDERED: SERT-132 PO (12:08)
[2016-08-23] MEDS ORDERED: TETA1INJ6 IM (14:04)
[2016-08-23] MEDS ORDERED: INFL1INJ55 I-DERMAL (14:06)
[2016-09-18] MEDS ORDERED: ERYTOIN10 EACH EYE (15:35)
[2016-10-22] MEDS ORDERED: BACT800T5 PO (10:14)
[2016-10-29] MEDS ORDERED: ESTR42.5V (16:43)
[2016-11-21] MEDS ORDERED: ORTH0.25 PO (14:24)
[2016-11-21] MEDS ORDERED: TRI-TAB PO (14:48)
[2016-12-11] MEDS ORDERED: MEDR150I IM (13:28)
[2016-12-18] MEDS ORDERED: DEPO150I IM (15:43)
== END 2016-08-05 21:09 | disposition home or self-care (01) ==
LOC: HOBED 20:02
DX: O26.893 Other specified pregnancy related conditions, third trimester (principal); O99.342 Other mental disorders complicating pregnancy, second trimester; Z3A.27 27 weeks gestation of pregnancy
CPT/HCPCS: 99284

== ENCOUNTER → 2016-09-25 | Outpatient (CLI) | payer MEDICAID ==
[~2016-09-25] MED LIST changes: -ALBU.5I NEB; +BACT800T5 PO; -BENA25TA3 PO; +DEPO150I IM; +ERYTOIN10 EACH EYE; +ESTR42.5V; +FERR325T PO; +HYDR-3133 PO; +IBUP-232 PO; +MEDR150I IM; -NEBULIZER1 MI1; +ORTH0.25 PO; +OXYC1TAB63 PO; +TRI-TAB PO; -VENTAER INH
== END ==
LOC: HPND 09:17
PROVIDERS: ATTEND Family Medicine
DX: O99.89 Other specified diseases and conditions complicating pregnancy, childbirth and the puerperium (principal); O26.849 Uterine size-date discrepancy, unspecified trimester; O40.9XX0 Polyhydramnios, unspecified trimester, not applicable or unspecified; Z03.71 Encounter for suspected problem with amniotic cavity and membrane ruled out
CPT/HCPCS: 76816

== ENCOUNTER 2016-10-07 15:50 | Inpatient (IN) | payer MEDICAID ==
[2016-10-07] VITALS (9 sets, daily range): BP systolic 99–117; BP diastolic 47–81; PULSE 60–94; RESP 18; TEMP 97.6–98.1
[~2016-10-07 15:50] MED LIST changes: -BACT800T5 PO; -DEPO150I IM; -ESTR42.5V; -FERR325T PO; -IBUP-232 PO; -MEDR150I IM; -ORTH0.25 PO; -OXYC1TAB63 PO; -TRI-TAB PO
[2016-10-07] MEDS ORDERED: SODIUM CHLOR 0.9% 1000 ML INJ 500 ML IV SCH (16:13)
--- NOTE | 2016-10-07 16:16 | PD ---
HPI Chief Complaint Dizziness/lightheadedness, blurry vision Date Seen: Oct 07, 2016 (Jayson Khalil MD R2) Travel History International Travel<30 Days: No Contact w/Intl Traveler<30Days: No Known Affected Area: No (Jayson Khalil MD R2) History of Present Illness HPI Ms. More is a [address] Michael at 36 2/7 weeks (STACEY 2016) who presents with complaints of blurry vision and dizziness today. Patient reports that she began feeling as if she had dizziness as if she was close to "passing out" with intermittent blurry vision beginning at approximately 2 PM today. So reports that she felt "hot," "cold," and shaky when she felt lightheaded. Patient also reports fatigue today and states that she has not eaten as much as usual. Patient denies associated headache, nausea/ vomiting, palpitations, shortness of breath, chest pain, or other symptoms. Patient states that she that this is the first time this has occurred this . No abdominal pain, vaginal bleeding, or vaginal discharge. Patient feels the infant has not moved as much as usual for the past week but is still moving. Per EMR, patient has history of elevated 1 hr GTT; 3 hr testing has not yet been performed. Ultrasound 09/26 was without abnormalities and consistent with STACEY. GBS scheduled for later this week. Para: 1 : 2 : 1 (Jayson Khalil MD R2) History Past Medical History Narrative Medical CIN1 on 10/17/13 pap wnl 2015 (Jayson Khalil MD R2) Obstetric History Obstetric History 2007 at 40 weeks gestation 1 elective with D&C (CONFIDENTIAL, do not disclose to anyone besides the patient) (Jayson Khalil MD R2) Past Surgical History Narrative Surgical D&C 2009 (Jayson Khalil MD R2) Social History Alcohol Use: No Tobacco Use: No Substance Abuse: No (Jayson Khalil MD R2) Allergies-Medications (Allergen,Severity, Reaction): Coded Allergies: Macrolides (Verified Allergy, Severe, 10/02/16) Hives Tetracycline (Verified Allergy, Severe, Rash, 10/02/16) POSSIBLE Home Meds Active Scripts Erythromycin Opth Oint 5 Mg/Gm Oint1 Applic EACH EYE BID #1 TUBE Ref 0 Prov:Alma Michael MD R2 09/18/16 Hydroxyzine HCl 25 Mg Tab25 Mg PO QID PRN (ANXIETY) #30 TAB Ref 3 Prov:Alma Michael MD R2 08/09/16 Review of Systems General / Constitutional: No: Fever, Chills Eyes: Blurred Vision HENT: Lightheadedness, No: Headaches Cardiovascular: No: Chest Pain or Discomfort Respiratory: No: Short of Breath Gastrointestinal: Nausea (earlier today, not current), No: Vomiting (Jayson Khalil MD R2) Physical Exam Orthostatic vital signs: Standing BP 116/78, HR 94 Sitting BP 111/78, HR 86 Supine BP 115/81, HR 75 T 97.8 Narrative GENERAL: Well-nourished, well-developed patient. SKIN: Warm and dry. HEAD: Normocephalic and atraumatic. EYES: No scleral icterus. No injection or drainage. ENT: No nasal drainage noted. Mucous membranes pink. Airway patent. NECK: Supple, trachea midline. No JVD. CARDIOVASCULAR: Regular rate and rhythm without murmurs. Normal perfusion RESPIRATORY: CTAB, normal rate ABDOMEN/GI: Abdomen soft, non-tender, bowel sounds present, no rebound, no guarding Gravid EXTREMITIES: No cyanosis or edema. NEUROLOGICAL: Awake and alert. Motor and sensory function grossly within normal limits. GENITOURINARY: External Genitalia- no lesions identified Cervix: 1 cm dilation, Presentation: V Membranes: Intact Uterine Contractions: q2-3 min FHT's: Category: 2 (strong suspicion for decel to ~90 bpm rather than maternal HR) Baseline: 150 Reactive: Y Variability: Moderate Decels: Possible decel to 90 bpm vs maternal HR (Jayson Khalil MD R2) Data Data Vital Signs Reviewed: Yes Orders Vital Signs (Adult) .ON ADMISSION (10/07/16 16:13) ^ Labor Status (10/07/16 16:13) Lactated Ringer's 1000 Ml Inj (Lr 1000 M (10/07/16 16:13) Sodium Chlor 0.9% 1000 Ml Inj (Ns 1000 M (10/07/16 16:13) Orthostatic Vital Signs (10/07/16 16:13) (Jyason Khalil MD R2) MDM Medical Record Reviewed: Yes Narrative Course / MDM [address] Michael at 36 2/7 weeks (STACEY 11/02/2016) -Lightheadedness/blurry vision -Cat 2 rhythm (suspect decel- maternal HR less likely) -Contractions q2-3 min -Cervix: 1 cm dilation -GBS unknown Plan -Will check orthostatics -Will continue EFM -Will obtain US to complete BPP due to decel -Will swab for GBS -Will start IVF (500ml bolus followed by 125ml/hr of LR) -Will check CBC, UA (Jayson Khalil MD R2) Attending Attestation Patient seen and examined. Agree with resident's assessment/plan. (Marisela Banuelos MD) Jayson Khalil MD R2 Oct 07, 2016 16:16 Marisela Banuelos MD Oct 07, 2016 19:23
[2016-10-07] MEDS ORDERED: SODIUM CHLORIDE 0.9% FLUSH 10 ML FLUSH IV FLUSH PRN (17:00)
[2016-10-07] MEDS: LACTATED RINGER'S 1000 ML INJ 1,000 ML IV SCH (17:00)
[2016-10-07] MEDS: LACTATED RINGER'S 1000 ML INJ 500 ML IV SCH ×3 (17:13→18:13)
--- NOTE | 2016-10-07 17:36 | HHI.HP ---
History & Physical H&P HPI Chief Complaint Dizziness/lightheadedness, blurry vision Date Seen: Oct 07, 2016 Travel History International Travel<30 Days: No Contact w/Intl Traveler<30Days: No Known Affected Area: No History of Present Illness HPI Ms. More is a [address] Michael at 36 2/7 weeks (STACEY 2016) who presents with complaints of blurry vision and dizziness today. Patient reports that she began feeling as if she had dizziness as if she was close to "passing out" with intermittent blurry vision beginning at approximately 2 PM today. So reports that she felt "hot," "cold," and shaky when she felt lightheaded. Patient also reports fatigue today and states that she has not eaten as much as usual. Patient denies associated headache, nausea/ vomiting, palpitations, shortness of breath, chest pain, or other symptoms. Patient states that she that this is the first time this has occurred this . No abdominal pain, vaginal bleeding, or vaginal discharge. Patient feels the infant has not moved as much as usual for the past week but is still moving. Per EMR, patient has history of elevated 1 hr GTT; 3 hr testing has not yet been performed. Ultrasound 09/26 was without abnormalities and consistent with STACEY. GBS scheduled for later this week. Para: 1 : 2 : 1 History Past Medical History Narrative Medical CIN1 on 10/17/13 pap wnl 2016 Obstetric History Obstetric History 2008 at 40 weeks gestation 1 elective with D&C (CONFIDENTIAL, do not disclose to anyone besides the patient) Past Surgical History Narrative Surgical D&C 2010 Social History Alcohol Use: No Tobacco Use: No Substance Abuse: No Allergies-Medications (Allergen,Severity, Reaction): Coded Allergies: Macrolides (Verified Allergy, Severe, 10/02/16) Hives Tetracycline (Verified Allergy, Severe, Rash, 10/02/16) POSSIBLE Home Meds Active Scripts Erythromycin Opth Oint 5 Mg/Gm Oint1 Applic EACH EYE BID #1 TUBE Ref 0 Prov:Alma Michael MD R2 09/18/16 Hydroxyzine HCl 25 Mg Tab25 Mg PO QID PRN (ANXIETY) #30 TAB Ref 3 Prov:Alma Michael MD R2 08/09/16 Review of Systems General / Constitutional: No: Fever, Chills Eyes: Blurred Vision HENT: Lightheadedness, No: Headaches Cardiovascular: No: Chest Pain or Discomfort Respiratory: No: Short of Breath Gastrointestinal: Nausea (earlier today, not current), No: Vomiting Physical Exam Orthostatic vital signs: Standing BP 116/78, HR 94 Sitting BP 111/78, HR 86 Supine BP 115/81, HR 75 T 97.8 Narrative GENERAL: Well-nourished, well-developed patient. SKIN: Warm and dry. HEAD: Normocephalic and atraumatic. EYES: No scleral icterus. No injection or drainage. ENT: No nasal drainage noted. Mucous membranes pink. Airway patent. NECK: Supple, trachea midline. No JVD. CARDIOVASCULAR: Regular rate and rhythm without murmurs. Normal perfusion RESPIRATORY: CTAB, normal rate ABDOMEN/GI: Abdomen soft, non-tender, bowel sounds present, no rebound, no guarding Gravid EXTREMITIES: No cyanosis or edema. NEUROLOGICAL: Awake and alert. Motor and sensory function grossly within normal limits. GENITOURINARY: External Genitalia- no lesions identified Cervix: 1 cm dilation, Presentation: V Membranes: Intact Uterine Contractions: q2-3 min FHT's: Category: 2 (strong suspicion for decel to ~90 bpm rather than maternal HR) Baseline: 150 Reactive: Y Variability: Moderate Decels: Possible decel to 90 bpm vs maternal HR Data Data Vital Signs Reviewed: Yes Orders Vital Signs (Adult) .ON ADMISSION (10/07/16 16:13) ^ Labor Status (10/07/16 16:13) Lactated Ringer's 1000 Ml Inj (Lr 1000 M (10/07/16 16:13) Sodium Chlor 0.9% 1000 Ml Inj (Ns 1000 M (10/07/16 16:13) Orthostatic Vital Signs (10/07/16 16:13) MDM Medical Record Reviewed: Yes Narrative Course / MDM [address] Michael at 36 2/7 weeks (STACEY 11/02/2016) -Lightheadedness/blurry vision -Cat 2 rhythm (suspect decel- maternal HR less likely) -Contractions q2-3 min -Cervix: 1 cm dilation -GBS unknown Plan -Will check orthostatics -Will continue EFM -Will obtain US to complete BPP due to decel -Will swab for GBS -Will start IVF (500ml bolus followed by 125ml/hr of LR) -Will check CBC, UA (Jayson Khalil MD R2) Attestation Patient seen and examined. Agree with resident's assessment and plan. (Marisela Banuelso MD) Jayson Khalil MD R2 Oct 07, 2016 17:36 Marisela Banuelos MD Oct 07, 2016 19:27
[2016-10-07] MEDS ORDERED: CALCIUM CARBONATE 500 MG CHEWABLE TAB CHEW PRN (17:45)
[2016-10-07 17:56] LABS: AUTOMATED NEUTROPHIL # 7.3 TH/MM3 (1.8-7.7); BASOPHIL % 0.3 % (0.0-2.0); EOSINOPHIL # 0.1 TH/MM3 (0-0.4); EOSINOPHIL % 0.9 % (0.0-4.0); HEMATOCRIT 33.9 % (35.0-46.0); HEMO FLAGS DIFF FINAL; LYMPH % 11.3 % (9.0-44.0); MEAN CELL VOLUME 89.9 FL (80.0-100.0); MEAN CORPUSCULAR HEMOGLOBIN 30.5 PG (27.0-34.0); MONO % 6.1 % (0.0-8.0); NEUT % 81.4 % (16.0-70.0); PLATELET COUNT 296 TH/MM3 (150-450); RED BLOOD COUNT 3.78 MIL/MM3 (4.00-5.30); RED CELL DISTRIBUTION WIDTH 12.6 % (11.6-17.2)
[2016-10-07 18:02] LABS: BACTERIA, URINE RARE /hpf; BLOOD, URINE NEG (NEG); COMMENT (UR) CULT NOT INDICATED; CULTURE IF INDICATED CULT NOT INDICATED; GLUCOSE,URINE NEG (NEG); HYALINE CAST, URINE 1 /lpf (RARE); KETONE, URINE NEG (NEG); NITRITE,URINE NEG (NEG); PH, URINE 6.5 (5.0-8.5); SQUAMOUS EPITHELIAL CELL URINE 4 /hpf (0-5); URINE COLOR YELLOW (YELLW/STRAW)
[2016-10-07 18:11] LABS: AMPHETAMINE, URINE NEG (NEG); BARBITURATES, URINE NEG (NEG); COCAINE, URINE NEG (NEG)
--- NOTE | 2016-10-07 19:45 | PD.LABORPN ---
Subjective Subjective Patient without complaints. Reports contractions unchanged. Good FM. Objective Vital Signs Vital Signs Date Time Temp Pulse Resp B/P Pulse Ox O2 Delivery O2 Flow Rate FiO2 10/07/16 18:45 62 117/76 10/07/16 18:45 97.6 18 10/07/16 16:15 18 10/07/16 16:14 94 116/73 10/07/16 16:13 86 111/78 10/07/16 16:11 75 115/81 Objective Pelvic Exam: Cervix: [] Dilatation: [2] Effacement: [60] Station: [-3] Presentation: [-] Membranes: [intact or ruptured] Uterine Contractions: [irregular contractions] FHT's: Category: [1] Baseline: [130s] Reactive: [reactive] Variability: [moderate] Decels: [variable decle to 120s] Assessment/Plan Problem List: (1) 36 weeks gestation of (2) Irregular contractions Assessment and Plan Cervical change noted. Will begin antibiotics for GBS prophylaxis. Will begin steroid course. Continue to monitor. All questions answered. Marisela Banuelos MD Oct 07, 2016 19:45
[2016-10-07] MEDS ORDERED: FAMOTIDINE 20 MG/2 ML VIAL IV PUSH ONE (20:30)
[2016-10-07] MEDS: ceFAZolin 2 GM PREMIX 50 ML IV SCH (20:58)
[2016-10-07] MEDS ORDERED: BETAMETHASONE SOD PHOS/ACETATE SUSP 30 MG/5 ML VIAL IM SCH (21:00)
[2016-10-07] MEDS ORDERED: PENICILLIN G POTASSIUM INJ 5,000,000 UNITS in SODIUM CHLORIDE 0.9% INJ 100 ML IV SCH (21:00)
[2016-10-07] MEDS ORDERED: SODIUM CHLORIDE 0.9% FLUSH 10 ML FLUSH IV FLUSH SCH (21:00)
[2016-10-08] VITALS (16 sets, daily range): BP systolic 102–139; BP diastolic 56–91; PULSE 55–89; RESP 5–18; TEMP 97.9–98.9; O2SAT 99–100
[2016-10-08] MEDS ORDERED: PENICILLIN G POTASSIUM INJ 2,500,000 UNITS in SODIUM CHLORIDE 0.9% INJ 100 ML IV SCH (01:00)
[2016-10-08] MEDS: LACTATED RINGER'S 1000 ML INJ 1,000 ML IV SCH (01:00)
[2016-10-08] MEDS: ceFAZolin 2 GM PREMIX 50 ML IV SCH (05:00)
--- NOTE | 2016-10-08 08:08 | PD.LABORPN ---
Subjective Subjective Patient reports occasional mild contractions. Objective Vital Signs Vital Signs Date Time Temp Pulse Resp B/P Pulse Ox O2 Delivery O2 Flow Rate FiO2 10/08/16 07:53 109/74 10/08/16 07:52 18 10/08/16 07:51 98.1 10/08/16 02:41 98.0 18 10/08/16 02:34 83 102/60 Objective Pelvic Exam: Cervix: [-] Dilatation: [2-3] Effacement: [60] Station: [3] Presentation: [-] Membranes: [intact or ruptured] Uterine Contractions: [-] FHT's: Category: [3] Baseline: [120s] Reactive: [-] Variability: [-] Decels: [bardycardic episode to 60s lasting 5 minutes] Assessment/Plan Problem List: (1) 36 weeks gestation of (2) Irregular contractions Assessment and Plan at 36w 3d admitted for observation- PTL/Category 2 tracing. Will continue to monitor at this time. All questions answered. Late entry- will at bedside a bradycardic episode was noted, berna to 60s , lasting 5 minutes. R/B/A of delivery via C/S were reviewed with patient. Consent obtained. Anesthesia and Peds notified. Marisela Banuelos MD Oct 08, 2016 08:08
[2016-10-08] MEDS ORDERED: OXYTOCIN 10 UNIT/ML AMP ONE (08:22)
[2016-10-08] MEDS ORDERED: fentaNYL CITRATE 250 MCG/5 ML AMP ONE (08:34)
[2016-10-08 09:38] LABS: BLOOD GAS BASE EXCESS -3.1 mmol/L (-2-2); BLOOD GAS O2 HGB SATURATION 10 % (90-100); CORD BLOOD GAS HCO3 23 mmol/L (21-29); CORD BLOOD GAS PCO2 58 mmHG (34-78); CORD BLOOD GAS PH 7.23 (7.14-7.42); CORD BLOOD GAS PO2 11 mmHG (3.0-40.0); DRAW SITE CORD BLOOD; STAT NO
[2016-10-08] MEDS ORDERED: OXYTOCIN 30 UNITS-500ML PREMIX 500 ML IV ONE ×2 (09:45→10:30)
[2016-10-08] MEDS ORDERED: SODIUM CHLORIDE 0.9% FLUSH 10 ML FLUSH IV FLUSH PRN ×2 (09:45→10:30)
[2016-10-08] MEDS ORDERED: ZOLPIDEM TARTRATE 5 MG TAB PO PRN (09:45)
[2016-10-08] MEDS ORDERED: ACETAMINOPHEN 325 MG TAB PO PRN (09:45)
[2016-10-08] MEDS ORDERED: oxyCODONE/ACETAMINOPHEN 5 MG/325 MG TAB PO PRN ×3 (09:45→10:30)
[2016-10-08] MEDS ORDERED: ONDANSETRON HCL 4 MG/2 ML VIAL IV PUSH PRN (09:45)
--- NOTE | 2016-10-08 09:46 | RADRPT ---
EXAM DATE/TIME: 10/08/2016 10:15 [place] COMPARISON: No previous studies available for comparison. INDICATIONS : Instrument count. MEDICAL HISTORY : None. SURGICAL HISTORY : None. ENCOUNTER: Initial ACUITY: 1 day PAIN SCORE: 0/10 LOCATION: pelvis FINDINGS: Examination of the abdomen demonstrates a normal bowel gas pattern. No free air is identified. No o rganomegaly is evident. Osseous structures are intact. No radiopaque foreign bodies are identified o verlying the abdomen or pelvis. A moderate amount of stool is present. CONCLUSION: No evidence for retained foreign body. Jamin Byrd MD on October 08, 2016 at 9:44 Board Certified Radiologist. This report was verified electronically.
[2016-10-08] MEDS ORDERED: ACETAMINOPHEN 1000 MG/100 ML VIAL IV ONE (09:56)
[2016-10-08] MEDS ORDERED: ceFAZolin INJ 1,000 MG VIAL ONE (09:56)
[2016-10-08] MEDS ORDERED: SODIUM CHLORIDE 0.9% FLUSH 5 ML FLUSH ONE (09:57)
[2016-10-08] MEDS ORDERED: HYDROmorphone HCL PF 2 MG/ML VIAL ONE (10:20)
--- NOTE | 2016-10-08 10:23 | PD.OB.DELI ---
Procedure Note Section Procedure Pre Op Diagnosis at 36w 3d, Category 3 tracing- bradycardia, remote from delivery. Post Op Diagnosis: Post Op Diagnosis Same Performed by Marisela Banuelos Procedure: Primary Low Transverse Sec (Emergent) Indication for delivery: Nonreassuring heart tracing Confirmed correct: Patient, Procedure, Site Anesthesia: Other (GETA) Urinary catheter: Inserted using sterile technique, ml urine output (240cc) Sterile preparation: With 10% povidone iodine (Betadine) Position: Supine Operative Features Skin Incision: Pfannenstiel Uterine Incision: Low transverse w/knife / blunt ext Membranes Ruptured: Artificially Presentation: Vertex Time of : 08:29 Infant: Male One Minute : 1 Five Minute : 9 Weight: 3335g Status of : Viable, Nursery present Placenta delivered: Sent to pathology Medications: Antibiotics, Oxytocin Procedure tolerated: Well Maternal Complications: Other (Cystotomy) Maternal Condition: Stable Condition: Stable Procedure in detail Dictated Marisela Banuelos MD Oct 08, 2016 10:23
[2016-10-08] MEDS ORDERED: PROPOFOL 200 MG/20 ML AMP IV PUSH ONE (10:38)
[2016-10-08] MEDS ORDERED: ONDANSETRON HCL 4 MG/2 ML VIAL IV PUSH ONE (10:38)
[2016-10-08] MEDS ORDERED: DEXAMETHASONE SOD PHOS 4 MG/ML VIAL IV PUSH ONE (10:38)
[2016-10-08] MEDS ORDERED: LACTATED RINGER'S 1000 ML INJ 1,000 ML IV SCH ×2 (14:33→15:23)
[2016-10-08] MEDS: IBUPROFEN 600 MG TAB PO PRN ×2 (16:15→22:02)
[2016-10-08] MEDS ORDERED: OXYTOCIN 30 UNITS-500ML PREMIX 500 ML IV PRN ×2 (19:45→20:30)
[2016-10-08] MEDS ORDERED: SODIUM CHLORIDE 0.9% FLUSH 10 ML FLUSH IV FLUSH SCH ×2 (21:00)
[2016-10-08] MEDS: SIMETHICONE 80 MG CHEWABLE TAB PO PRN (21:14)
[2016-10-08] MEDS: oxyCODONE/ACETAMINOPHEN 5 MG/325 MG TAB PO PRN (21:14)
[2016-10-08] MEDS: DOCUSATE SODIUM 50 MG/SENNA 8.6 MG TAB PO PRN (22:01)
--- NOTE | 2016-10-08 23:31 | MP ---
cc: MARISELA HALL MD DATE OF SURGERY: 10/08/2016 PREOPERATIVE DIAGNOSIS: A 31 year-old 5, para 1, at 36-3/7 weeks with nonreassuring heart tones, category 3 tracing, bradycardiac episode, remote from delivery. POSTOPERATIVE DIAGNOSIS: A 31 year-old 5, para 1, at 36-3/7 weeks with nonreassuring heart tones, category 3 tracing, bradycardiac episode, remote from delivery. OPERATION: Emergent primary low transverse section via Pfannenstiel skin incision. SURGEON: Dr. Marisela Hall. MELT ROOM OPERATOR: Dr. Elaine. IT NETWORK ENGINEER Alexa Santana. ANESTHESIA: General. TIME OF DELIVERY 08:29 ESTIMATED BLOOD LOSS: 500 cc. IV FLUIDS 700 cc URINE OUTPUT: 240 cc at the end of procedure. FINDINGS: Viable male infant, vertex presentation with weight of 3335 grams, Apgars of 1 at one minute, 9 at five minutes. Grossly normal uterus, bilateral tubes and ovaries. PATHOLOGY: Placenta. COMPLICATIONS: Incidental cystotomy with repair done. PROCEDURE: The patient was taken to the operating room where general anesthesia was obtained without difficulty. She was prepped and draped in the normal sterile fashion, see composition. A Pfannenstiel skin incision was made with the knife, carried down to the underlying layer of the fascia with a knife. The fascia was then incised in the midline and extended laterally with blunt dissection. The rectus muscles were in the midline. The peritoneum was then identified and entered at which point an incidental cystotomy was created per press assistant, Dr. Elaine. The procedure was continued and a transverse incision was made on the lower uterine aspect, extended up, as the head was delivered atraumatically, followed by shoulders, and the remainder of the body. The cord was clamped and cut. The infant was then handed off to awaiting nursery staff. Attention was then returned to the patient where a three vessel placenta was then removed manually. The uterus was then exteriorized, cleared of all clot and debris. The uterine incision was repaired with 0 Vicryl in a running lock fashion. The second layer was imbricated using the same suture at which point the previously created cystotomy was examined and was noted to be approximately 1 cm in length at the dome of the bladder. That incision was repaired by Dr. Elaine in two layers using 0 chromic, after which point sterile milk was injected into the Gomez and no spillage was noted from the bladder with good reapproximation of the cystotomy repair noted and hemostasis noted as well. The procedure was then continued and the uterus was then returned to the abdomen after the abdomen and pelvis were irrigated and suctioned. The peritoneum was approximated using 2-0 Vicryl in a running fashion. The rectus muscles were reapproximated in a U-stitch x2 using 2-0 Vicryl. The fascial incision was then reapproximated using 0 PDS in a running locked fashion. The subcutaneous adipose tissue was then irrigated, made hemostatic using the cautery where needed and then reapproximated in two layers using 2-0 plain gut in a running continuous fashion. The skin was reapproximated using 4-0 Vicryl on a Darek needle in a subcuticular fashion. All sponge, lap, instrument and needle counts were correct but the pre counts were not done. An x-ray was ordered and obtained with reading per Dr. Byrd of negative findings. No evidence of retained foreign body noted. The patient was then extubated and taken to the Recovery Room in stable condition. Marisela Hall MD JR/BRITTNEY /10:36 AM /11:15 PM [facility]
[2016-10-09 01:15] VITALS: BP 114/61; PULSE 78; RESP 18; TEMP 98.3; O2SAT 99
[2016-10-09 04:05] VITALS: BP 91/51; PULSE 84; RESP 16; TEMP 98; O2SAT 97
[2016-10-09 05:58] LABS: AUTOMATED NEUTROPHIL # 9.6 TH/MM3 (1.8-7.7); BASOPHIL % 0.2 % (0.0-2.0); EOSINOPHIL % 0.2 % (0.0-4.0); HEMATOCRIT 29.6 % (35.0-46.0); HEMO FLAGS DIFF FINAL; LYMPHOCYTE # 1.2 TH/MM3 (1.0-4.8); MEAN CELL VOLUME 89.2 FL (80.0-100.0); MEAN CORPUSCULAR HEMOGLOBIN 30.2 PG (27.0-34.0); MEAN CORPUSCULAR HGB CONC 33.8 % (32.0-36.0); NEUT % 80.6 % (16.0-70.0); PLATELET COUNT 296 TH/MM3 (150-450); RED BLOOD COUNT 3.32 MIL/MM3 (4.00-5.30); RED CELL DISTRIBUTION WIDTH 12.9 % (11.6-17.2); WHITE BLOOD COUNT 11.9 TH/MM3 (4.0-11.0)
[2016-10-09] MEDS: IBUPROFEN 600 MG TAB PO PRN ×3 (06:17→20:13)
[2016-10-09] MEDS: oxyCODONE/ACETAMINOPHEN 5 MG/325 MG TAB PO PRN ×3 (06:17→20:15)
[2016-10-09] MEDS: SIMETHICONE 80 MG CHEWABLE TAB PO PRN ×3 (07:26→20:15)
[2016-10-09 07:33] VITALS: BP 100/66; PULSE 70; RESP 18; TEMP 98.7
--- NOTE | 2016-10-09 08:16 | HHI.OB ---
Subjective Remarks Postoperative day # 1. No acute issues overnight. Vitals are stable, patient remains afebrile. She is breast feeding without difficulty. Incision not draining. Decreased lochia. Denies dysuria. No breast tenderness. She notes significant gas pressure that has been improving with Simethicone. She is tolerating PO. No nausea or vomiting. Positive flatus. Gomez is draining urine without blood. Denies calf pain or shortness of breath. Otherwise, she is doing well this morning and has no other complaints. (Alma Michael MD R2) Objective Vitals/I&O Vital Signs Date Time Temp Pulse Resp B/P Pulse Ox O2 Delivery O2 Flow Rate FiO2 10/09/16 07:33 98.7 18 10/09/16 07:33 70 100/66 10/09/16 04:05 84 16 91/51 97 10/09/16 04:05 98.0 10/09/16 01:15 98.3 78 18 114/61 99 10/08/16 19:25 98.9 16 10/08/16 19:25 75 110/56 10/08/16 15:00 108/59 10/08/16 15:00 97.9 69 17 10/08/16 14:00 18 10/08/16 13:00 16 10/08/16 11:25 67 18 113/67 10/08/16 11:25 98.0 10/08/16 10:50 97.9 121/73 10/08/16 10:50 55 17 100 10/08/16 10:35 69 99 10/08/16 10:35 122/81 10/08/16 10:20 99 10/08/16 10:20 89 139/91 10/08/16 10:05 5 10/08/16 10:05 72 129/76 99 10/08/16 09:55 98.2 75 18 99 10/08/16 09:55 111/79 10/08/16 08:20 77 100 (Alma Michael MD R2) Result Diagram: 10/09/16 0510 Objective Remarks GENERAL: Well-nourished, well-developed patient. CARDIOVASCULAR: Regular rate and rhythm without murmurs, gallops, or rubs. RESPIRATORY: Breath sounds equal bilaterally. No accessory muscle use. ABDOMEN/GI: Abdomen soft, non-tender, bowel sounds present. Incision: Clean, dry and intact. Fundus: Firm, non-tender at umbilicus. GENITOURINARY: Light to moderate bleeding. EXTREMITIES: No cyanosis or edema, non-tender, without signs of DVT. Medications and IVs Current Medications Medications (Trade) Dose Ordered Sig/Rudy Route Start Time Stop Time Status Last Admin (Lr 1000 ml Inj) 1,000 ml @ 125 mls/hr Q8H IV 10/07/16 17:00 10/08/16 01:00 Calcium Carbonate 500 mg 500 mg Q2H PRN CHEW 10/07/16 17:45 10/07/16 18:34 (Lr 1000 ml Inj) 1,000 ml @ 100 mls/hr Q10H IV 10/08/16 14:33 10/09/16 10:32 10/08/16 16:16 (Mylicon Chew) 80 mg QID PRN PO 10/08/16 09:45 10/09/16 07:26 (Tylenol) 650 mg Q6H PRN PO 10/08/16 09:45 (Motrin) 600 mg Q6H PRN PO 10/08/16 09:45 10/09/16 06:17 (Isabel-Colace) 2 tab Q12H PRN PO 10/08/16 09:45 10/08/16 22:01 (Ambien) 5 mg HS PRN PO 10/08/16 09:45 Ondansetron HCl 4 mg 4 mg Q6H PRN IV PUSH 10/08/16 09:45 (Lr 1000 ml Inj) 1,000 ml @ 100 mls/hr Q10H IV 10/08/16 15:23 10/09/16 11:22 (NS Flush) 2 ml BID IV FLUSH 10/08/16 21:00 (NS Flush) 2 ml UNSCH PRN IV FLUSH 10/08/16 10:30 (Percocet 5-325 Mg) 1 tab Q4H PRN PO 10/08/16 10:30 10/09/16 06:17 (Percocet 5-325 Mg) 2 tab Q4H PRN PO 10/08/16 10:30 (M-M-R Ii Inj) 0.5 ml ONCE ONCE SQ 10/09/16 16:00 10/09/16 16:01 (Boostrix Inj) 0.5 ml ONCE ONCE IM 10/09/16 16:00 10/09/16 16:01 (Alma Michael MD R2) Assessment/Plan Problem List: (1) 36 weeks gestation of (2) Irregular contractions Assessment and Plan 31 y/o female who is POD# 1 s/p stat CXN. -Continue routine care. -Percocet and Motrin PRN pain. -Encouraged OOB. Advised pelvic rest for 6 wks. Will need a f/u appt. in 1 wk for incision check and removal of Gomez catheter. -Re: ctrl, she would like OCP. -D/c in 1-[address] Gage (Alma Michael MD R2) Collaborating MD Comments I agree with management plans and have discussed with resident team. (Claritza Gage MD) Alma Michael MD R2 Oct 09, 2016 08:16 Claritza Gage MD Oct 09, 2016 09:13
[2016-10-09 16:00] VITALS: BP 95/59; PULSE 76; RESP 18; TEMP 99.1
[2016-10-09] MEDS ORDERED: DIPHTH/TETANUS/ACEL PERTUSSIS (BOOSTER) 0.5 ML VIAL/PFS IM ONE ×2 (16:00)
[2016-10-09] MEDS ORDERED: MEASLES, MUMPS, RUBELLA VACCINE 0.5 ML VIAL SQ ONE ×2 (16:00)
[2016-10-09 19:48] VITALS: BP 102/60; PULSE 76; RESP 17; TEMP 97.5
[2016-10-09] MEDS: DOCUSATE SODIUM 50 MG/SENNA 8.6 MG TAB PO PRN (20:13)
[2016-10-10] MEDS: IBUPROFEN 600 MG TAB PO PRN ×3 (06:03→21:24)
[2016-10-10] MEDS: SIMETHICONE 80 MG CHEWABLE TAB PO PRN ×3 (06:03→21:24)
[2016-10-10] MEDS: oxyCODONE/ACETAMINOPHEN 5 MG/325 MG TAB PO PRN ×2 (06:03→21:25)
--- NOTE | 2016-10-10 08:26 | HHI.OB ---
Subjective Post Operative Day: 2 Remarks Ms. More isPOD2 from stat CS for nonreassuring HR. VSS, afebrile. Patient reports continued pain which she describes pain as diffuse rather than abdominal. Patient passing gas normally. Gomez catheter in place. Mild vaginal bleeding. She notes persistent gas; she is currently on Simethicone. Tolerating diet, no nausea or vomiting. No calf pain or shortness of breath. Patient states that is going well. Objective Vitals/I&O Vital Signs Date Time Temp Pulse Resp B/P Pulse Ox O2 Delivery O2 Flow Rate FiO2 10/09/16 19:48 97.5 76 17 102/60 10/09/16 16:00 76 95/59 10/09/16 16:00 99.1 18 Result Diagram: 10/09/16 0510 Objective Remarks GENERAL: Well-nourished, well-developed patient. CARDIOVASCULAR: Regular rate and rhythm without murmurs. Normal peripheral perfusion RESPIRATORY: CTAB, normal rate ABDOMEN/GI: Abdomen soft, non-tender, bowel sounds present. Incision: Clean, intact. Appears dry, Fundus: Firm, non-tender. GENITOURINARY: Light bleeding. EXTREMITIES: No cyanosis or edema, non-tender, without signs of DVT. Medications and IVs Current Medications Medications (Trade) Dose Ordered Sig/Rudy Route Start Time Stop Time Status Last Admin (Lr 1000 ml Inj) 1,000 ml @ 125 mls/hr Q8H IV 10/07/16 17:00 10/08/16 01:00 (Tums Chew) 500 mg Q2H PRN CHEW 10/07/16 17:45 10/07/16 18:34 (Mylicon Chew) 80 mg QID PRN PO 10/08/16 09:45 10/10/16 06:03 (Tylenol) 650 mg Q6H PRN PO 10/08/16 09:45 (Motrin) 600 mg Q6H PRN PO 10/08/16 09:45 10/10/16 06:03 (Isabel-Colace) 2 tab Q12H PRN PO 10/08/16 09:45 10/09/16 20:13 (Ambien) 5 mg HS PRN PO 10/08/16 09:45 (Zofran Inj) 4 mg Q6H PRN IV PUSH 10/08/16 09:45 (NS Flush) 2 ml BID IV FLUSH 10/08/16 21:00 (NS Flush) 2 ml UNSCH PRN IV FLUSH 10/08/16 10:30 (Percocet 5-325 Mg) 1 tab Q4H PRN PO 10/08/16 10:30 10/10/16 06:03 (Percocet 5-325 Mg) 2 tab Q4H PRN PO 10/08/16 10:30 Assessment/Plan Problem List: (1) 36 weeks gestation of (2) Bladder injury (3) care following delivery Assessment and Plan 31 y/o female who is POD# 2 s/p stat CXN. Routine care -Continue to monitor VS -Percocet and Motrin PRN pain. -Continue to encourage ambulation -Continue stool softener -Advised pelvic rest for 6 wks. -Will need a f/u appt. in 1 wk for incision check -Plan for initiation of OCP's Incidental Bladder wall injury Impression: Incidental during CS; repaired intraoperatively with post-operative Gomez placement -Continue Gomez catheter, plan to remove in 7 days+ from injury Jayson Khalil MD R2 Oct 10, 2016 08:26
[2016-10-10 09:35] VITALS: BP 99/66; PULSE 110; RESP 16; TEMP 97.7
[2016-10-10] MEDS: DOCUSATE SODIUM 50 MG/SENNA 8.6 MG TAB PO PRN (21:25)
[2016-10-11] MEDS: LACTATED RINGER'S 1000 ML INJ 1,000 ML IV SCH (01:00)
[2016-10-11] MEDS: IBUPROFEN 600 MG TAB PO PRN (05:26)
[2016-10-11] MEDS: SIMETHICONE 80 MG CHEWABLE TAB PO PRN (05:26)
[2016-10-11] MEDS ORDERED: IBUP-232 PO (06:48)
[2016-10-11] MEDS ORDERED: OXYC1TAB63 PO ×2 (06:48→17:41)
--- NOTE | 2016-10-11 06:49 | HHI.DCPOC ---
Discharge Care Plan Diagnosis: (1) Bladder injury (2) care following delivery Report Symptoms to Your Doctor -Temperate above 100.5 degrees -Redness, of incision or excessive or foul smelling drainage -Unusual pain or calf pain -Increased vaginal bleeding -Painful or difficulty urinating -Feelings of extreme sadness or anxiety after 2 weeks Goals to Promote Your Health * To prevent worsening of your condition and complications * To maintain your health at the optimal level Directions to Meet Your Goals Take your medications as prescribed Follow your dietary instruction Follow activity as directed Ensure plenty of rest for recovery Drink fluids for hydration Keep your appointments as scheduled Take your immunizations and boosters as scheduled If your symptoms worsen call your PCP, if no PCP go to Urgent Care Center or Emergency Room Smoking is Dangerous to Your Health. Avoid second hand smoke Call the 24-hour crisis hotline for domestic abuse at Jackie Escamilla MD R1 Oct 11, 2016 06:49
[2016-10-11 08:15] VITALS: BP 103/65; PULSE 16; RESP 16; TEMP 98
--- NOTE | 2016-10-11 09:08 | HHI.OB ---
Subjective Post Operative Day: 3 Remarks Ms. More is POD3 from stat CS for nonreassuring HR. Patient AFVSS. Patient reports improvement in prior abdominal pain. Patient passing gas normally. Gomez catheter in place; no complaints. Mild vaginal bleeding. She notes persistent gas; she is currently on Simethicone. Tolerating diet, no nausea or vomiting. No calf pain or shortness of breath. (Jayson Khalil MD R2 ) Objective Vitals/I&O Vital Signs Date Time Temp Pulse Resp B/P Pulse Ox O2 Delivery O2 Flow Rate FiO2 10/11/16 08:15 98.0 16 16 103/65 10/10/16 09:35 97.7 110 16 10/10/16 09:35 99/66 (Jayson hKalil MD R2) Result Diagram: 10/09/16 0510 Objective Remarks GENERAL: Well-nourished, well-developed patient. CARDIOVASCULAR: Regular rate and rhythm without murmurs. Normal peripheral perfusion RESPIRATORY: CTAB, normal rate ABDOMEN/GI: Abdomen soft, non-tender, bowel sounds present. Incision: Clean, intact. Dry Fundus: Firm, non-tender. GENITOURINARY: Light bleeding. Catheter with yellow urine being drained. EXTREMITIES: No cyanosis or edema, non-tender, without signs of DVT. Medications and IVs Current Medications Medications (Trade) Dose Ordered Sig/Rudy Route Start Time Stop Time Status Last Admin (Lr 1000 ml Inj) 1,000 ml @ 125 mls/hr Q8H IV 10/07/16 17:00 10/08/16 01:00 (Tums Chew) 500 mg Q2H PRN CHEW 10/07/16 17:45 10/07/16 18:34 (Mylicon Chew) 80 mg QID PRN PO 10/08/16 09:45 10/11/16 05:26 (Tylenol) 650 mg Q6H PRN PO 10/08/16 09:45 (Motrin) 600 mg Q6H PRN PO 10/08/16 09:45 10/11/16 05:26 (Isabel-Colace) 2 tab Q12H PRN PO 10/08/16 09:45 10/10/16 21:25 (Ambien) 5 mg HS PRN PO 10/08/16 09:45 (Zofran Inj) 4 mg Q6H PRN IV PUSH 10/08/16 09:45 (NS Flush) 2 ml BID IV FLUSH 10/08/16 21:00 (NS Flush) 2 ml UNSCH PRN IV FLUSH 10/08/16 10:30 (Percocet 5-325 Mg) 1 tab Q4H PRN PO 10/08/16 10:30 10/10/16 21:25 (Percocet 5-325 Mg) 2 tab Q4H PRN PO 10/08/16 10:30 (Jayson Khalil MD R2) Assessment/Plan Problem List: (1) 36 weeks gestation of (2) Bladder injury (3) care following delivery Assessment and Plan 31 y/o female who is POD# 3 s/p stat CXN. Routine care -Continue to monitor VS -Percocet and Motrin PRN pain. -Continue to encourage ambulation -Continue stool softener -Will prescribe ferrous sulfate 325mg BID for mild anemia (Hgb 10 post-op) -Advised pelvic rest for 6 wks -Will need a f/u appt. in 1 wk for incision check -Plan for initiation of OCP's Incidental Bladder wall injury Impression: Incidental during CS; repaired intraoperatively with post-operative Gomez placement -Continue Gomez catheter, plan to remove in 7 days+ from injury Discharge Planning Plan for discharge today (Jayson Khalil MD R2) Attending Attestation The exam, history, and the medical decision-making described in the above note were completed with the assistance of the resident provider. I reviewed and agree with the findings presented. I attest that I had a [id number] encounter with the patient on the same day, and personally performed and documented my assessment and findings in the medical record. (Can Cornelius MD) Jayson Khalil MD R2 Oct 11, 2016 09:08 Can Cornelius MD Oct 11, 2016 11:20
[2016-10-11] MEDS ORDERED: FERR325T PO (09:09)
[2016-10-22] MEDS ORDERED: BACT800T5 PO (10:14)
[2016-10-29] MEDS ORDERED: ESTR42.5V (16:43)
[2016-11-21] MEDS ORDERED: ORTH0.25 PO (14:24)
[2016-11-21] MEDS ORDERED: TRI-TAB PO (14:48)
[2016-12-11] MEDS ORDERED: MEDR150I IM (13:28)
[2016-12-18] MEDS ORDERED: DEPO150I IM (15:43)
== END 2016-10-11 11:50 | disposition home or self-care (01) | DRG 765 ==
LOC: HOBED 15:50 → H2EA 17:22 → OBSVTOIN 10-08 08:35 → H1EA 10-08 11:23
PROVIDERS: ADMIT Obstetrics & Gynecology; ATTEND Obstetrics & Gynecology
PROC: 10D00Z1 Extraction of Products of Conception, Low, Open Approach (ICD-10-PCS; principal; 2016-10-08)
PROC: 0TQB0ZZ Repair Bladder, Open Approach (ICD-10-PCS; 2016-10-08)
DX: O76 Abnormality in fetal heart rate and rhythm complicating labor and delivery (principal); N99.72 Accidental puncture and laceration of a genitourinary system organ or structure during other procedure; O90.81 Anemia of the puerperium; Z37.0 Single live birth; Z3A.36 36 weeks gestation of pregnancy
CPT/HCPCS: 59025; 74000; 76819; 80307; 81001; 82805; 85025; 87081; 87150; 88307; 96360; C1765; G0378; J0131; J0690; J0702; J1100; J1170; J2405; J2590; J3010; J7120

== ENCOUNTER 2017-10-24 09:03 | Emergency (ER) | payer MEDICAID ==
[~2017-10-24] VITALS: Ht 167.6 cm; Wt 50.0 kg
[~2017-10-24 09:03] MED LIST changes: -ERYTOIN10 EACH EYE; +FERR325T PO; -HYDR-3133 PO; +NORG1TAB28 PO; -POLY.9T TOP
[2017-10-24 09:05] VITALS: BP 118/58; PULSE 78; RESP 16; TEMP 98.6; O2SAT 100
[2017-10-24] MEDS ORDERED: CLIN300C5 PO (09:23)
[2017-10-24] MEDS ORDERED: CIPR0.3S2 RIGHT EYE (09:23)
--- NOTE | 2017-10-24 09:25 | PD ---
HPI Chief Complaint: Eye Problems/Injury Time Seen by Provider: 09:14 Travel History International Travel<30 days: No Contact w/Intl Traveler<30days: No Traveled to known affect area: No History of Present Illness HPI 32-year-old female presents to the emergency department for evaluation of right upper eyelid swelling and pain that started this morning when she woke up. Patient reports history of styes. However, she does not normally get the swelling with her styes. She states she has got multiple styes surgically removed. Patient denies any fevers or chills. She has no chronic medical problems and takes no prescribed medications. She denies . Current pain is 6/10, without radiation, aching. No exacerbating or alleviating factors. Moderate severity. She denies any visual changes or problems with the eye itself. PFSH Past Medical History Hx Anticoagulant Therapy: No Cardiovascular Problems: No Chemotherapy: No Cerebrovascular Accident: No Diabetes: No Diminished Hearing: No Musculoskeletal: Yes (PINCHED NERVES IN BACK) Respiratory: No Integumentary: Yes (hx hives) Immunizations Current: Yes Influenza Vaccination: No ?: Not LMP: 3 monthes on depo inj : 4 Para: 1 Miscarriage: 2 Ectopic : No Ovarian Cysts: No Dilation and Curettage (D&C): Yes Tubal Ligation: No Past Surgical History Hysterectomy: No Other Surgery: Yes (LEFT EYE ) Social History Alcohol Use: No Tobacco Use: No Substance Use: No Allergies-Medications (Allergen,Severity, Reaction): Coded Allergies: doxycycline (Unverified Allergy, Severe, Rash, 10/24/17) POSSIBLE erythromycin base (Unverified Allergy, Severe, 10/24/17) Hives minocycline (Unverified Allergy, Severe, Rash, 10/24/17) POSSIBLE tigecycline (Unverified Allergy, Severe, Rash, 10/24/17) POSSIBLE Reported Meds & Prescriptions Reported Meds & Active Scripts Active Review of Systems Except as stated in HPI: all other systems reviewed are Neg Physical Exam Narrative GENERAL: Well-nourished, well-developed female patient, ambulatory. Afebrile SKIN: Focused skin assessment warm/dry. HEAD: Normocephalic. Atraumatic ENT: Mucosa pink and moist. No erythema or exudates. No uvular edema. No uvular , palatal, or tonsillar deviation. Airway patent. Nasal turbinates appear normal without nasal blood, purulent drainage or septal hematoma. Bilateral tympanic membranes clear without erythema or perforation. EYES: No scleral icterus. No injection or drainage. PERRLA. EOM intact. No pain with EOMs. Stye noted to right upper eyelid with mild surrounding erythema. NECK: Supple, trachea midline. No JVD or lymphadenopathy. CARDIOVASCULAR: Regular rate and rhythm without murmurs, gallops, or rubs. RESPIRATORY: Breath sounds equal bilaterally. No accessory muscle use. Lung sounds are clear to auscultation. MUSCULOSKELETAL: No cyanosis, or edema. Data Data Last Documented VS Vital Signs Date Time Temp Pulse Resp B/P (MAP) Pulse Ox O2 Delivery O2 Flow Rate FiO2 10/24/17 09:05 98.6 78 16 118/58 (78) 100 MDM Medical Decision Making Medical Screen Exam Complete: Yes Emergency Medical Condition: Yes Medical Record Reviewed: Yes Differential Diagnosis Stye versus preseptal cellulitis versus orbital cellulitis Narrative Course 32-year-old female presents to the emergency department for evaluation right upper eyelid swelling and pain that started this morning when she woke up. No problems with the eye itself. Physical exam is consistent with stye and mild preseptal cellulitis. No evidence of orbital cellulitis. Patient was discharged prescription for Ciloxan eyedrops and clindamycin. She is to follow up with an toll bridge operator. She is return here for any acute worsening of symptoms. She verbalizes agreement and understanding. The patient was discharged in stable condition with instructions, including return instructions and follow up instructions. Diagnosis Primary Impression: Stye Qualified Codes: H00.011 - Hordeolum externum right upper eyelid Additional Impression: Preseptal cellulitis of right upper eyelid Referrals: Assistant Manager Retail call for appointment Primary Care Physician call for appointment Patient Instructions: Cellulitis (ED), General Instructions, Stye (ED) Departure Forms: Tests/Procedures, Work Release Enter return to work date: Oct 26, 2017 Additional Instructions: Use antibiotic eyedrops as directed. Take antibiotic as directed until gone. Warm, moist compresses with gentle massage. Follow up with toll bridge operator. Return to the emergency department for any acute worsening of symptoms. Med/Other Pt SpecificInfo: Prescription(s) given Scripts Clindamycin (Clindamycin) 300 Mg Cap 300 MG PO Q6H for Infection for 10 Days, #40 CAP 0 Refills Prov: Maria Isabel Moon 10/24/17 Ciprofloxacin Opth Drops (Ciprofloxacin Opth Drops) 0.3% Soln 2 DROP RIGHT EYE Q4H for Infection, #1 BOTTLE 0 Refills while awake x 5 days. Prov: Maria Isabel Moon 10/24/17 Disposition: 01 DISCHARGE HOME Condition: Stable Maria Isabel Moon Oct 24, 2017 09:25
== END 2017-10-24 09:36 | disposition home or self-care (01) ==
LOC: PHEFT 09:03
DX: H00.011 Hordeolum externum right upper eyelid (principal)
CPT/HCPCS: 99283

== ENCOUNTER 2017-12-09 12:36 | Emergency (ER) | payer MEDICAID ==
[~2017-12-09] VITALS: Ht 167.6 cm; Wt 50.0 kg
[~2017-12-09 12:36] MED LIST changes: +CIPR0.3S2 RIGHT EYE; +CLIN300C5 PO; -FERR325T PO; -NORG1TAB28 PO
[2017-12-09 13:13] VITALS: BP 125/77; PULSE 109; RESP 17; TEMP 99.3; O2SAT 98
[2017-12-09] MEDS ORDERED: SODIUM CHLOR 0.9% 1000 ML INJ 1,000 ML IV ONE (13:45)
[2017-12-09] MEDS ORDERED: IBUPROFEN 800 MG TAB PO ONE (13:45)
[2017-12-09] MEDS ORDERED: ACETAMINOPHEN 325 MG TAB PO ONE (13:45)
--- NOTE | 2017-12-09 13:47 | PD ---
HPI . Myalgias Chief Complaint: Musculoskeletal Complaint Time Seen by Provider: 13:31 Travel History International Travel<30 days: No Contact w/Intl Traveler<30days: No Traveled to known affect area: No History of Present Illness HPI Patient presents with chief complaint of myalgias. Onset was yesterday. She rates her pain at 7/10. Associated symptoms include shaking, chills, headache and mild sore throat. No known exposures. She took one Aleve yesterday with relief of her headache but no relief of her myalgias. She has not taken any further medication. Symptoms are getting progressively worse. PFSH Past Medical History Hx Anticoagulant Therapy: No Cardiovascular Problems: No Chemotherapy: No Cerebrovascular Accident: No Diabetes: No Diminished Hearing: No Musculoskeletal: Yes (PINCHED NERVES IN BACK) Respiratory: No Integumentary: Yes (hx hives) Immunizations Current: Yes ?: Not : 4 Para: 1 Miscarriage: 2 Ectopic : No Ovarian Cysts: No Dilation and Curettage (D&C): Yes Tubal Ligation: No Past Surgical History Hysterectomy: No Other Surgery: Yes (LEFT EYE ) Social History Alcohol Use: No Tobacco Use: No Substance Use: No Allergies-Medications (Allergen,Severity, Reaction): Coded Allergies: doxycycline (Unverified Allergy, Severe, Rash, 12/09/17) POSSIBLE erythromycin base (Unverified Allergy, Severe, 12/09/17) Hives minocycline (Unverified Allergy, Severe, Rash, 12/09/17) POSSIBLE tigecycline (Unverified Allergy, Severe, Rash, 12/09/17) POSSIBLE Reported Meds & Prescriptions Reported Meds & Active Scripts Active Macrobid (Nitrofurantoin Monoh/Nitrofur Macro) 100 Mg Cap 100 Mg PO BID 5 Days Review of Systems Except as stated in HPI: all other systems reviewed are Neg General / Constitutional: Positive: Fever, Chills Eyes: No: Drainage, Redness HENT: Positive: Sore Throat, No: Rhinorrhea, Congestion Cardiovascular: Positive: Chest Pain or Discomfort Respiratory: No: Cough, Shortness of Breath Gastrointestinal: No: Nausea, Vomiting, Diarrhea Genitourinary: No: Urgency, Frequency, Dysuria Musculoskeletal: Positive: Myalgias Physical Exam Narrative GENERAL: Awake and alert and in no acute distress. SKIN: warm/dry. HEAD: Normocephalic. Atraumatic. EYES: Pupils equal and round. Extraocular movements are intact. ENT: Mucous membranes pink and moist. Throat has what appears to be postnasal drip. NECK: Supple. Full range of motion without pain.. No cervical lymphadenopathy. CARDIOVASCULAR: Regular rate and rhythm. Sinus tachycardia at about 110. Heart sounds are normal. RESPIRATORY: No accessory muscle use. Clear to auscultation. Breath sounds equal bilaterally. GASTROINTESTINAL: Abdomen soft. Nontender. Bowel sounds present. Nondistended. MUSCULOSKELETAL: No obvious deformities. Normal muscle tone. NEUROLOGICAL: Awake and alert. No obvious cranial nerve deficits. Motor grossly within normal limits. Normal speech. PSYCHIATRIC: Appropriate mood and affect; insight and judgment normal. Data Data Last Documented VS Vital Signs Date Time Temp Pulse Resp B/P (MAP) Pulse Ox O2 Delivery O2 Flow Rate FiO2 12/09/17 13:13 99.3 109 17 125/77 (93) 98 Orders Orders Sepsis Workup Initiated (12/09/17 ) Complete Blood Count With Diff (12/09/17 13:39) Comprehensive Metabolic Panel (12/09/17 13:39) Lactic Acid Sepsis Protocol (12/09/17 13:39) Urinalysis - C+S If Indicated (12/09/17 13:39) Influenzae A/B Antigen (12/09/17 13:39) Blood Culture (12/09/17 13:39) Iv Access Insert/Monitor (12/09/17 13:39) Acetaminophen (Tylenol) (12/09/17 13:45) Ibuprofen (Motrin) (12/09/17 13:45) Group A Rapid Strep Screen (12/09/17 13:39) Sodium Chlor 0.9% 1000 Ml Inj (Ns 1000 M (12/09/17 13:45) Urine Culture (12/09/17 14:15) Ceftriaxone Inj (Rocephin Inj) (12/09/17 15:00) Strep Culture (Group A) (12/09/17 14:05) Labs Laboratory Tests Test 12/09/17 14:10 12/09/17 14:15 White Blood Count 5.5 TH/MM3 Red Blood Count 4.69 MIL/MM3 Hemoglobin 14.5 GM/DL Hematocrit 41.2 % Mean Corpuscular Volume 87.7 FL Mean Corpuscular Hemoglobin 30.8 PG Mean Corpuscular Hemoglobin Concent 35.1 % Red Cell Distribution Width 12.6 % Platelet Count 243 TH/MM3 Mean Platelet Volume 8.6 FL Neutrophils (%) (Auto) 77.0 % Lymphocytes (%) (Auto) 12.6 % Monocytes (%) (Auto) 9.1 % Eosinophils (%) (Auto) 0.7 % Basophils (%) (Auto) 0.6 % Neutrophils # (Auto) 4.2 TH/MM3 Lymphocytes # (Auto) 0.7 TH/MM3 Monocytes # (Auto) 0.5 TH/MM3 Eosinophils # (Auto) 0.0 TH/MM3 Basophils # (Auto) 0.0 TH/MM3 CBC Comment DIFF FINAL Differential Comment Blood Urea Nitrogen 9 MG/DL Creatinine 0.77 MG/DL Random Glucose 79 MG/DL Total Protein 7.8 GM/DL Albumin 4.5 GM/DL Calcium Level 8.6 MG/DL Alkaline Phosphatase 72 U/L Aspartate Amino Transf (AST/SGOT) 11 U/L Alanine Aminotransferase (ALT/SGPT) 16 U/L Total Bilirubin 0.5 MG/DL Sodium Level 140 MEQ/L Potassium Level 3.7 MEQ/L Chloride Level 108 MEQ/L Carbon Dioxide Level 23.9 MEQ/L Anion Gap 8 MEQ/L Estimat Glomerular Filtration Rate 88 ML/MIN Lactic Acid Level 0.8 mmol/L Urine Color YELLOW Urine Turbidity HAZY Urine pH 6.0 Urine Specific [place] 1.024 Urine Protein TRACE mg/dL Urine Glucose (UA) NEG mg/dL Urine Ketones NEG mg/dL Urine Occult Blood NEG Urine Nitrite NEG Urine Bilirubin NEG Urine Urobilinogen LESS THAN 2.0 MG/DL Urine Leukocyte Esterase LARGE Urine RBC 2 /hpf Urine WBC 6 /hpf Urine Squamous Epithelial Cells 7 /hpf Urine Transitional Epithelial Cells <1 /hpf Urine Bacteria MOD /hpf Urine Hyaline Casts 2 /lpf Urine Mucus MANY /lpf Microscopic Urinalysis Comment CATH-CULTURE IND MDM Medical Decision Making Medical Screen Exam Complete: Yes Emergency Medical Condition: Yes Differential Diagnosis Differential diagnosis includes but is not limited to viral syndrome, rhabdomyolysis, sepsis, overuse syndrome Narrative Course Patient presents for myalgias. Septic workup has been ordered. Rapid flu and rapid strep is also been ordered. In the meantime, she will be treated with IV fluids and oral Tylenol and Motrin. UA>>large LE, 6 WBCs, mod bact She has been given a dose of Rocephin. Flu screen and strep screen are negative. CBC & BMP Diagram 12/09/17 14:10 Total Protein 7.8, Albumin 4.5, Calcium Level 8.6, Alkaline Phosphatase 72, Aspartate Amino Transf (AST/SGOT) 11 L, Alanine Aminotransferase (ALT/SGPT) 16, Total Bilirubin 0.5 Lactic acid is normal. Diagnosis Primary Impression: Myalgia Additional Impression: UTI (urinary tract infection) Qualified Codes: N39.0 - Urinary tract infection, site not specified Patient Instructions: General Instructions, Urinary Tract Infection in Women ( [place]) Med/Other Pt SpecificInfo: Prescription(s) given Scripts Nitrofurantoin Monohydrate Macrocrystals (Macrobid) 100 Mg Cap 100 MG PO BID for Infection for 5 Days, #10 CAP 0 Refills Prov: Deirdre Ornelas MD 12/09/17 Disposition: 01 DISCHARGE HOME Condition: Stable Deirdre Ornelas MD Dec 09, 2017 13:47
[2017-12-09 14:44] LABS: BACTERIA, URINE MOD /hpf; BILIRUBIN, URINE NEG (NEG); BLOOD, URINE NEG (NEG); GLUCOSE,URINE NEG (NEG); HYALINE CAST, URINE 2 /lpf (RARE); KETONE, URINE NEG (NEG); MUCUS URINE MANY /lpf (OCC); NITRITE,URINE NEG (NEG); SQUAMOUS EPITHELIAL CELL URINE 7 /hpf (0-5); TRANSITIONAL EPI CELLS, URINE <1 /hpf; URINE COLOR YELLOW (YELLW/STRAW); URINE LEUKOCYTE ESTERASE LARGE (NEG)
[2017-12-09] MEDS ORDERED: cefTRIAXone INJ 1,000 MG in SODIUM CHLORIDE 0.9% INJ 100 ML IV ONE (15:00)
[2017-12-09 15:04] LABS: AUTOMATED NEUTROPHIL # 4.2 TH/MM3 (1.8-7.7); BASOPHIL % 0.6 % (0.0-2.0); EOSINOPHIL % 0.7 % (0.0-4.0); HEMATOCRIT 41.2 % (35.0-46.0); HEMOGLOBIN 14.5 GM/DL (11.6-15.3); LYMPH % 12.6 % (9.0-44.0); LYMPHOCYTE # 0.7 TH/MM3 (1.0-4.8); MEAN CELL VOLUME 87.7 FL (80.0-100.0); MEAN CORPUSCULAR HEMOGLOBIN 30.8 PG (27.0-34.0); MEAN CORPUSCULAR HGB CONC 35.1 % (32.0-36.0); MEAN PLATELET VOLUME 8.6 FL (7.0-11.0); MONO % 9.1 % (0.0-8.0); MONOCYTE # 0.5 TH/MM3 (0-0.9); PLATELET COUNT 243 TH/MM3 (150-450); RED BLOOD COUNT 4.69 MIL/MM3 (4.00-5.30); RED CELL DISTRIBUTION WIDTH 12.6 % (11.6-17.2); WHITE BLOOD COUNT 5.5 TH/MM3 (4.0-11.0)
[2017-12-09] MEDS ORDERED: MACR100C2 PO (15:38)
[2017-12-09 15:41] LABS: ALBUMIN 4.5 GM/DL (3.4-5.0); ALT (GPT) 16 U/L (10-53); AST (GOT) 11 U/L (15-37); BICARBONATE 23.9 MEQ/L (21.0-32.0); BLOOD UREA NITROGEN 9 MG/DL (7-18); CALCIUM 8.6 MG/DL (8.5-10.1); CHLORIDE 108 MEQ/L (98-107); CREATININE 0.77 MG/DL (0.50-1.00); GLOMERULAR FILTRATION RATE 88 ML/MIN (>89); GLUCOSE,RANDOM 79 MG/DL (74-106); SODIUM (NA) 140 MEQ/L (136-145)
[2017-12-09 15:44] LABS: ALKALINE PHOSPHATASE 72 U/L (45-117); TOTAL BILIRUBIN ADULT 0.5 MG/DL (0.2-1.0); TOTAL PROTEIN 7.8 GM/DL (6.4-8.2)
[2017-12-09 16:22] VITALS: BP 102/68
== END 2017-12-09 16:23 | disposition home or self-care (01) ==
LOC: NEPD 12:36
DX: M79.1 Myalgia (principal); N39.0 Urinary tract infection, site not specified; R51 Headache
CPT/HCPCS: 80053; 81001; 83605; 85025; 87040; 87081; 87086; 87804; 87880; 96361; 96374; 99284; J0696; J7030